=== PATIENT | female | born 1940 | race Caucasian/White ===

== ENCOUNTER 2016-11-19 00:12 | Emergency (ER) | payer MEDICARE ==
--- NOTE | 2016-11-19 00:53 | ED ---
Ayla Ceballos Anna, scribed for Osmany Brown MD on 11/19/16 at 0049 . HPI Chest Pain - HPI Summary HPI Summary: Patient is a 76 y/o female coming to [facility] presenting with left anterior chest pain that began 24 hours ago. Today, she traveled to see family and spent. The pain is now worse, and she describes the severity as 10/10. Her neck and back also hurt. She took two tablets of Tylenol at 2100, but this has not alleviated the pain. She reports that she has not had pain similar to this before. - History of Current Complaint Chief Complaint: EDChestPainROMI Time Seen by Provider: 11/19/16 00:40 Hx Obtained From: Patient Onset/Duration: Started Days Ago, Still Present Timing: Lasting Days Initial Severity: Moderate Current Severity: Moderate Pain Intensity: 10 Pain Scale Used: 0-10 Numeric Chest Pain Location: Left Anterior - Additional Pertinent History Primary Care Physician: [id number] - Allergy/Home Medications Allergies/Adverse Reactions: Allergies Allergy/AdvReac Type Severity Reaction Status Date / Time Latex Allergy Severe Shortness Verified 11/19/16 00:29 of Breath Iodinated Contrast Media Allergy Intermediate Hives Verified 11/19/16 00:29 [CONTRAST DYE] Penicillins [PCN] Allergy Intermediate Hives/Diff. Verified 11/19/16 00:29 Breathing/I tching Sulfa Drugs Allergy Intermediate GI Upset Verified 11/19/16 00:29 Triamcinolone [From Nasacort] Allergy Unknown Unknown Verified 11/19/16 00:29 Reaction Details Nitrofurantoin AdvReac Intermediate GI Upset Verified 11/19/16 00:29 SURGICAL TAPE Allergy Mild Rash Uncoded 11/19/16 00:29 PMH/Surg Hx/FS Hx/Imm Hx Endocrine/Hematology History: Reports: Hx Anticoagulant Therapy - daily coumadin Denies: Hx Diabetes, Hx Thyroid Disease Cardiovascular History: Reports: Hx Angina, Hx Cardiomegaly, Hx Hypercholesterolemia - HLD, Hx Hypertension, Hx Pacemaker/ICD, Hx Peripheral Vascular Disease, Hx Rheumatic Fever - YOUNG CHILD, 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, Other Cardiovascular Problems/Disorders Denies: Hx Coronary Artery Disease, Hx Myocardial Infarction Respiratory History: Reports: Hx Asthma - on meds, Hx Seasonal Allergies, Other Respiratory Problems/Disorders - REACTIVE AIRWAY Denies: Hx Chronic Obstructive Pulmonary Disease (COPD) GI History: Reports: Hx Gastroesophageal Reflux Disease, Hx Ulcer - HEALED WITH ORAL MEDS, NO PROBLEMS SINCE History: Reports: Hx Kidney Stones - , NONE SINCE, PASSED ON OWN Musculoskeletal History: Reports: Hx Arthritis - KNEES, HANDS,, Hx Bursitis, Hx Tendonitis - Hx OF, ELBOWS Sensory History: Reports: Hx Cataracts - NO SURGERY, Hx Contacts or Glasses, Hx Hearing Problem Opthamlomology History: Reports: Hx Cataracts - NO SURGERY, Hx Contacts or Glasses Neurological History: Reports: Hx Headaches Comment Only: Other Neuro Impairments/Disorders - SUDDENLY 2012 Psychiatric History: Reports: Hx Anxiety, Hx Depression - ON DAILY MEDS - Cancer History Cancer Type, Location and Year: Breast cancer - Surgical History Surgery Procedure, Year, and Place: choley 2009. 2011 [facility]. 2002 CARDIAC MITRAL & AORTIC valve replacement [facility]. shoulder surgery 1997. tubal 1975. L breast surgery with lymph node removal L. lumpectomy. 1974 L-4- 5. diskectomy 1974. appy 1961. bilat hands trigger fingers Hx Anesthesia Reactions: No Infectious Disease History: No Infectious Disease History: Denies: Hx Clostridium Difficile, Hx Hepatitis, Hx Human Immunodeficiency Virus (HIV), Hx of Known/Suspected MRSA, Hx Shingles, Hx Tuberculosis, Hx Known/ Suspected VRE, Hx Known/Suspected VRSA, History Other Infectious Disease, Traveled Outside the in Last 30 Days - Family History Known Family History: Positive: Cardiac Disease, Hypertension - Social History Alcohol Use: None Substance Use Type: Reports: None Smoking Status (MU): Never Smoked Tobacco Review of Systems Positive: Chest Pain Positive: Arthralgia, Myalgia All Other Systems Reviewed And Are Negative: Yes Physical Exam Triage Information Reviewed: Yes Vital Signs On Initial Exam: Initial Vitals Temp Pulse Resp BP Pulse Ox 98.5 F 75 18 169/81 97 11/19/16 00:14 11/19/16 00:14 11/19/16 00:14 11/19/16 00:14 11/19/16 00:14 Vital Signs Reviewed: Yes Appearance: Positive: Well-Appearing, No Pain Distress Skin: Positive: Warm Head/Face: Positive: Normal Head/Face Inspection Eyes: Positive: IZABELLA ENT: Positive: Hearing grossly normal Neck: Positive: Supple Respiratory/Lung Sounds: Positive: Clear to Auscultation, Breath Sounds Present Cardiovascular: Positive: RRR Abdomen Description: Positive: Nontender, Soft Bowel Sounds: Positive: Present Musculoskeletal: Positive: Strength/ROM Intact Neurological: Positive: Alert, Oriented to Person Place, Time Psychiatric: Positive: Affect/Mood Appropriate - Harrah Coma Scale Coma Scale Total: 15 Diagnostics - Vital Signs Vital Signs Temp Pulse Resp BP Pulse Ox 11/19/16 00:32 72 11/19/16 00:14 98.5 F 75 18 169/81 97 - Laboratory Result Diagrams: 11/19/16 00:25 11/19/16 00:25 Lab Statement: Any lab studies that have been ordered have been reviewed, and results considered in the medical decision making process. - Radiology CXR Xray Interpretation: No Acute Changes Radiology Interpretation Completed By: ED Physician - EKG 0023 Cardiac Rate: NL - 85 bpm EKG Rhythm: Atrial Fibrillation - with rapid ventricular response ST Segment: Normal Re-Evaluation - Re-Evaluation First Eval Re-Evaluation Time: 05:43 Comment: Discussed results and plan of care with patient. Patient is agreeable with plan. Chest Pain Course/Dx - Course Assessment/Plan: Patient is a 76 y/o female coming to [facility] presenting with left anterior chest pain that began 24 hours ago. Today, she traveled to see family and spent. The pain is now worse, and she describes the severity as 10/ 10. Her neck and back also hurt. She took two tablets of Tylenol at 2100, but this has not alleviated the pain. She reports that she has not had pain similar to this before. Labs reveal WBC 12.5, RBC 3.55, Hgb 10.5, Hct 33, INR 2.34, BUN 39, Creatinine 1.49, BUN/Creatinine ratio 26.2, glucose 136, magnesium 1.8, alkaline phosphatase 116. Initial troponin is 0.01. D-Dimer < 200. CXR is unremarkable. Repeat troponin is 0.02. Patient will be signed out pending third troponin at 0645. If this is negative, patient can be discharged with follow up from primary care physician. Patient is agreeable with plan. - Diagnoses Provider Diagnoses: Chest pain Discharge - Discharge Plan Condition: Stable Disposition: OTHER Discharge Disposition Comment: Signed out, pending third troponin at 0645. If negative, d/c home. Patient Education Materials: Chest Pain (ED) Additional Instructions: Follow up with your primary care provider within 48 hours. Return to the Emergency Department for new or worsening symptoms. The documentation as recorded by the Ayla schwartz Anna accurately reflects the service I personally performed and the decisions made by me, Osmany Brown MD.
[2016-11-19] MEDS ORDERED: Aspirin Low Dose CHEW TAB* 81 MG PO ONE (01:08)
[2016-11-19 01:25] LABS: Hematocrit 33 % (35-47); Hemoglobin 10.5 g/dl (12.0-16.0); Mean Corpuscular HGB Conc 32 g/dl (31-36); Mean Corpuscular Hemoglobin 30 pg (27-31); Mean Corpuscular Volume 92 fL (80-97); Mean Platelet Volume 9 um3 (7.4-10.4); Red Blood Count 3.55 10^6/ul (4.0-5.4); Red Cell Distribution Width 14 % (10.5-15); White Blood Count 12.5 10^3/ul (3.5-10.8)
[2016-11-19 01:36] LABS: Albumin 3.8 g/dL (3.2-5.2); BUN/Creatinine Ratio 26.2 (8-20); Calcium 8.9 mg/dL (8.6-10.3); EGFR African American 43.9 (>60); EGFR Non-African American 34.1 (>60); Globulin 2.8 g/dL (2-4); Magnesium 1.8 mg/dL (1.9-2.7); Potassium 4.2 mmol/L (3.5-5.0); Total Bilirubin 0.3 mg/dL (0.2-1.0); Total Protein 6.6 g/dL (6.4-8.9)
[2016-11-19 01:38] LABS: Troponin I 0.01 ng/mL (<0.04)
--- NOTE | 2016-11-19 05:58 | RAD ---
INDICATION: Chest pain COMPARISON: July 27, 2015 TECHNIQUE: PA and lateral dual-energy views were obtained. FINDINGS: Bones/Soft Tissues: There are no acute bony findings. There is sternotomy with mitral and aortic valvular replacement. There is a dual-chamber right-sided cardiac pacemaker appearing unchanged Cardiomediastinal: The heart is normal in size. Lungs: There are no infiltrates. Pleura: There are no pleural effusions. Other: None IMPRESSION: POSTOPERATIVE CHANGES. NO ACTIVE DISEASE
[2016-11-19] MEDS ORDERED: Ketorolac INJ* 30 MG/ML 1 ML VIAL IV PUSH ONE (08:04)
[2016-11-19] MEDS ORDERED: oxyCODONE/Acetamin 5/325 MG* TAB PO ONE (08:16)
[2016-11-19 09:44] VITALS: BP 171/78
--- NOTE | 2016-11-19 10:14 | ED ---
I, Oh,Soohsathyaun, scribed for Henrry Pierce MD on 11/19/16 at 0812 . Progress - Progress Note Progress Note: Pt has been signed out at shift change from Dr. Brown. Upon re-evaluation Pt denies any SOB, n/v, palpitation, or diaphoresis. Pt does reports LUE shoulder pain that is worse with movement. Upon examination pt is not ttp to chest, CTA, and negative of BLE edema. Percocet was given for pain. With Dr. Brown's advise, pt is discharged with outpatient f/u with her primary care doctor. Pt is agreeable to plan of care. Re-Evaluation - Re-Evaluation First Eval Re-Evaluation Time: 08:02 Change: Improved Comment: MD in room to update pt on negative third trop result and discuss plan of care involving discharge. At this moment Pt denies any SOB, n/v, palpitation , or diaphoresis. Pt does reports LUE shoulder pain that is worse with movement. Upon examination pt is CTA, and negative of BLE edema. Toradol was given for pain. With Dr. Brown's advise, pt is discharged with outpatient f/u with her primary care doctor. Pt is agreeable to plan of care. Course/Dx - Course Course Of Treatment: VITAL SIGNS: Reviewed. GENERAL: Patient is a well developed and nourished female who is lying comfortable in the stretcher. Patient is not in any acute respiratory distress. HEAD AND FACE: No signs of trauma. No ecchymosis, hematomas or skull depressions. No sinus tenderness. EYES: PERRLA, EOMI x 2, No injected conjunctiva, no nystagmus. EARS: Hearing grossly intact. Ear canals and tympanic membranes are within normal limits. MOUTH: Oropharynx within normal limits. NECK: Supple, trachea is midline, no adenopathy, no JVD, no carotid bruit, no c-spine tenderness, neck with full ROM. CHEST: Symmetric, no tenderness at palpation. LUNGS: Clear to auscultation bilaterally. No wheezing or crackles. CVS: Regular rate and rhythm , S1 and S2 present, no murmurs or gallops appreciated. ABDOMEN: Soft, non- tender. No signs of distention. No rebound no guarding, and no masses palpated. Bowel sounds are normal. EXTREMITIES: FROM in all major joints, no edema, no cyanosis or clubbing. NEURO: Alert and oriented x 3. No acute neurological deficits. Speech is normal and follows commands. SKIN: Dry and warm. Patient continues to be asymptomatic therefore she will be discharged home. I discussed all the findings and test results with the patient. Patient was instructed to return to the emergency room immediately if any of the symptoms return or worsens. Plan of care was discussed with the patient and understands and agrees. All questions were answered at patient satisfaction. There were no further complaints or concerns. Lung exam before discharge: CTA B/L. Good air exchange. No wheezing or crackles heard. CVS: S1 and S2 present. No murmurs appreciated. Patient is alert and oriented x 3. Patient is hemodynamically stable. Patient will be discharged home with follow up PCP in the next 2-3 days - Diagnoses Provider Diagnoses: Chest pain The documentation as recorded by the Shadi schwartz Soohyun accurately reflects the service I personally performed and the decisions made by me, Henrry Pierce MD.
== END 2016-11-19 09:43 | disposition home or self-care (01) ==
LOC: ED 00:12
DX: R07.9 Chest pain, unspecified (principal)
CPT/HCPCS: 36415; 71020; 80053; 83605; 83735; 84484; 85025; 85379; 85610; 93005; 96374; 99284; A9270-GY; J1885

== ENCOUNTER 2016-12-04 09:15 | Emergency (ER) | payer MEDICARE ==
--- NOTE | 2016-12-04 10:13 | RAD ---
HISTORY: Fall, back pain COMPARISONS: None TECHNIQUE: Multiple contiguous axial CT scans were obtained of the lumbar spine without intravenous contrast, with coronal and sagittal multiplanar reformations. FINDINGS: SPINAL CANAL: Evaluation of the central canal is limited on CT technique; however, there is no obvious canalicular mass or epidural hemorrhage. ALIGNMENT: There is trace anterolisthesis of L3 on L4 VERTEBRAL BODIES: There is diffuse osteopenia. The vertebral bodies are preserved in height. There is no displaced fracture. JOINTS: There is diffuse facet osteoarthritic change MUSCULATURE: Unremarkable INTERVERTEBRAL DISCS: There is diffuse loss of intervertebral disc height throughout the spine. AXIAL IMAGES: T12-L1: There is no osseous neural foraminal narrowing or central canal stenosis. L1-L2: There is no osseous neural foraminal narrowing or central canal stenosis. L2-L3: There is a mild disc bulge. There is no osseous neural foraminal narrowing or central canal stenosis. L3-L4: There is broad-based disc bulge. There is mild narrowing of central canal. There is mild bilateral neural foraminal narrowing. L4-L5: There is marginal osteophyte formation at the neural foramina bilaterally. There is moderate bilateral neural foraminal narrowing. There is no osseous central canal stenosis. L5-S1: There is mild disc bulge. There is marginal osteophyte formation at the neural foramina bilaterally. There is moderate bilateral neural foraminal narrowing. There is mild narrowing of the central canal. SOFT TISSUES: There is diverticulosis of the colon. There is atherosclerosis of the abdominal aorta. OTHER: None IMPRESSION: 1. OSTEOPENIA. 2. DEGENERATIVE DISC DISEASE AND OSTEOARTHRITIS, DESCRIBED ABOVE. 3. NO ACUTE OSSEOUS INJURY TO THE LUMBAR SPINE
[2016-12-04] MEDS ORDERED: predniSONE TAB* 10 MG PO ONE (10:29)
--- NOTE | 2016-12-04 11:14 | ED ---
Back Pain - HPI Summary HPI Summary: 76F presents with lower back pain for a day. She fell two days ago onto her left side because she slid on her mattress and fell of her bed. She states pain goes to above left knee. She denies any numbness or tingling. She has multiple allergies and take only take tyenlol for pain. She states she does not like how narcotic make her feel. She was able to ambulate with pain. She denies any loss of bowel or bladder. - History of Current Complaint Chief Complaint: EDBackInjuryPain Stated Complaint: BACK PAIN Time Seen by Provider: 12/04/16 09:33 Pain Intensity: 10 - Allergies/Home Medications Allergies/Adverse Reactions: Allergies Allergy/AdvReac Type Severity Reaction Status Date / Time Latex Allergy Severe Shortness Verified 11/19/16 00:29 of Breath Iodinated Contrast Media Allergy Intermediate Hives Verified 11/19/16 00:29 [CONTRAST DYE] Penicillins [PCN] Allergy Intermediate Hives/Diff. Verified 11/19/16 00:29 Breathing/I tching Sulfa Drugs Allergy Intermediate GI Upset Verified 11/19/16 00:29 Triamcinolone [From Nasacort] Allergy Unknown Unknown Verified 11/19/16 00:29 Reaction Details Nitrofurantoin AdvReac Intermediate GI Upset Verified 11/19/16 00:29 SURGICAL TAPE Allergy Mild Rash Uncoded 11/19/16 00:29 PMH/Surg Hx/FS Hx/Imm Hx Endocrine/Hematology History: Reports: Hx Anticoagulant Therapy - daily coumadin Denies: Hx Diabetes, Hx Thyroid Disease Cardiovascular History: Reports: Hx Angina, Hx Cardiomegaly, Hx Hypercholesterolemia - HLD, Hx Hypertension, Hx Pacemaker/ICD, Hx Peripheral Vascular Disease, Hx Rheumatic Fever - YOUNG CHILD, 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, Other Cardiovascular Problems/Disorders Denies: Hx Coronary Artery Disease, Hx Myocardial Infarction Respiratory History: Reports: Hx Asthma - on meds, Hx Seasonal Allergies, Other Respiratory Problems/Disorders - REACTIVE AIRWAY Denies: Hx Chronic Obstructive Pulmonary Disease (COPD) GI History: Reports: Hx Gastroesophageal Reflux Disease, Hx Ulcer - HEALED WITH ORAL MEDS, NO PROBLEMS SINCE History: Reports: Hx Kidney Stones - , NONE SINCE, PASSED ON OWN Musculoskeletal History: Reports: Hx Arthritis - KNEES, HANDS,, Hx Bursitis, Hx Tendonitis - Hx OF, ELBOWS Sensory History: Reports: Hx Cataracts - NO SURGERY, Hx Contacts or Glasses, Hx Hearing Problem Opthamlomology History: Reports: Hx Cataracts - NO SURGERY, Hx Contacts or Glasses Neurological History: Reports: Hx Headaches Comment Only: Other Neuro Impairments/Disorders - SUDDENLY 2012 Psychiatric History: Reports: Hx Anxiety, Hx Depression - ON DAILY MEDS - Cancer History Cancer Type, Location and Year: Breast cancer - Surgical History Surgery Procedure, Year, and Place: choley 2009. 2012 [facility]. 2002 CARDIAC MITRAL & AORTIC valve replacement [facility]. shoulder surgery 1997. tubal 1975. L breast surgery with lymph node removal L. lumpectomy. 1974 L-4- . diskectomy 1974. appy 1961. bilat hands trigger fingers Hx Anesthesia Reactions: No Infectious Disease History: No Infectious Disease History: Denies: Hx Clostridium Difficile, Hx Hepatitis, Hx Human Immunodeficiency Virus (HIV), Hx of Known/Suspected MRSA, Hx Shingles, Hx Tuberculosis, Hx Known/ Suspected VRE, Hx Known/Suspected VRSA, History Other Infectious Disease, Traveled Outside the in Last 30 Days - Family History Known Family History: Positive: Cardiac Disease, Hypertension - Social History Alcohol Use: None Substance Use Type: Reports: None Smoking Status (MU): Never Smoked Tobacco Review of Systems Negative: Fever Negative: Chest Pain Negative: Shortness Of Breath Positive: Myalgia - back pain All Other Systems Reviewed And Are Negative: Yes Physical Exam Triage Information Reviewed: Yes Vital Signs On Initial Exam: Initial Vitals Temp Pulse Resp BP Pulse Ox 97.7 F 70 15 147/75 98 12/04/16 09:20 12/04/16 09:20 12/04/16 09:20 12/04/16 09:20 12/04/16 09:20 Vital Signs Reviewed: Yes Appearance: Positive: Well-Appearing Skin: Positive: Warm, Dry Head/Face: Positive: Normal Head/Face Inspection Eyes: Positive: Normal, Conjunctiva Clear Respiratory/Lung Sounds: Positive: Clear to Auscultation, Breath Sounds Present Cardiovascular: Positive: Normal, RRR Musculoskeletal: Positive: Limited @ - back due to pain, Other - no mdilein tenderness, pain to left side of back, neg SLR, good pulses Diagnostics - Vital Signs Vital Signs Temp Pulse Resp BP Pulse Ox 12/04/16 09:23 72 95 12/04/16 09:22 147/75 12/04/16 09:20 97.7 F 69 15 147/75 98 - Laboratory Lab Statement: Any lab studies that have been ordered have been reviewed, and results considered in the medical decision making process. - CT back CT Interpretation: Positive (See Comments) - IMPRESSION: 1. OSTEOPENIA. 2. DEGENERATIVE DISC DISEASE AND OSTEOARTHRITIS, DESCRIBED ABOVE. 3. NO ACUTE OSSEOUS INJURY TO THE LUMBAR SPINE CT Interpretation Completed By: Radiologist Back Pain Course/Dx - Course Course Of Treatment: 76F presents with back pain since last night. She fell two days ago on her left side. She has been taking tyenlol for her pain. She has been able to ambulate today with pain. CT shows no fracture. discussed options with patient and family due to patient already having tendency to be confused do not want to add medication that could make more confused. discussed potentially lidocaine patches but patient has adverse reaction to tape. discussed adding prednisone and patient states has probably had medication in past. patient tolerated dose in ED. patient understands and agrees with plan - Diagnoses Differential Diagnosis/HQI/PQRI: Positive: Fracture, Herniated Disc, Strain, Sprain Provider Diagnoses: Back pain Discharge - Discharge Plan Condition: Good Disposition: HOME Prescriptions: Methylprednisolone [Medrol Dosepak 4 MG*] 4 mg PO .SEE RHONA INSTRUCTION #1 packet Patient Education Materials: Back Pain (ED) Referrals: Casper Pace MD [Primary Care Provider] - Additional Instructions: Follow directions on package for Medrol pack Use Tylenol for pain every 6 hours ice/heat area, move as much as possible Follow up with primary within 5 days Return to ED if unable to ambulate or develop any new or worsening symptoms
[2016-12-04 12:28] VITALS: BP 141/61
== END 2016-12-04 12:27 | disposition home or self-care (01) ==
LOC: ED 09:15
DX: M54.5 Low back pain (principal); J45.909 Unspecified asthma, uncomplicated; Z79.01 Long term (current) use of anticoagulants; F41.9 Anxiety disorder, unspecified; F32.9 Major depressive disorder, single episode, unspecified; W06.XXXA Fall from bed, initial encounter; Y92.9 Unspecified place or not applicable; Z88.0 Allergy status to penicillin; Z88.2 Allergy status to sulfonamides
CPT/HCPCS: 36415; 72131; 85610; 99282; J7512

== ENCOUNTER 2017-05-26 08:13 | Emergency (ER) | payer MEDICARE ==
[2017-05-26 08:26] VITALS: BP 134/64
--- NOTE | 2017-05-26 09:06 | UC ---
Gennaro Ceballos Angela, scribed for Ximena Santillan MD on 05/26/17 at 0847 . Lower Extremity/Ankle HPI - HPI Summary HPI Summary: This pt is a 77 y/o female presenting to [facility] c/o left great toe nail is coming off. Pt reports she has had some bleeding and it is painful. Pt notes she trips a lot but has not noticed any recent trauma to her toe. She states she is afraid to take her toe nail off as she is currently on Coumadin. Pt's PCP is Dr. Pace. 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 Pt reports she was diagnosed with temporal arteritis 4 days ago. Pt is currently on Coumadin. PMHx: HTN, diabetes. She states her diabetes is being controlled with diet. - History of Current Complaint Chief Complaint: UCLowerExtremity Stated Complaint: FOOT COMPLAINT Time Seen by Provider: 05/26/17 08:41 Hx Obtained From: Patient Onset/Duration: Lasting Days Severity Initially: Moderate Severity Currently: Severe Pain Intensity: 9 Pain Scale Used: 0-10 Numeric Aggravating Factor(s): Nothing Alleviating Factor(s): Nothing Able to Bear Weight: Yes - Risk Factors Gout Risk Factors: Diabetes, Hypertension - Allergies/Home Medications Allergies/Adverse Reactions: Allergies Allergy/AdvReac Type Severity Reaction Status Date / Time Latex Allergy Severe Shortness Verified 05/26/17 08:22 of Breath Iodinated Contrast Media Allergy Intermediate Hives Verified 05/26/17 08:22 [CONTRAST DYE] Penicillins [PCN] Allergy Intermediate Hives/Diff. Verified 05/26/17 08:22 Breathing/I tching Sulfa Drugs Allergy Intermediate GI Upset Verified 05/26/17 08:22 Triamcinolone [From Nasacort] Allergy Unknown Unknown Verified 05/26/17 08:22 Reaction Details Nitrofurantoin AdvReac Intermediate GI Upset Verified 05/26/17 08:22 SURGICAL TAPE Allergy Mild Rash Uncoded 05/26/17 08:22 Home Medications: Home Medications Diltiazem HCl Extended Release [Diltiazem HCl ER] 300 mg PO DAILY 05/26/17 [ History Confirmed 05/26/17] predniSONE TAB* [Deltasone TAB*] 20 mg PO DAILY 05/26/17 [History Confirmed ] PMH/Surg Hx/FS Hx/Imm Hx - Additional Past Medical History Additional PMH: PMHx: temporal arteritis diagnosed 05/29 Endocrine History: Diabetes - recently diagnosed approx 2 weeks ago Cardiovascular History: Hypertension, Other Other Cardiovascular History: Valvular heart disease - mechanical valves AVR MVR. Respiratory History: Asthma GI/ History: Ulcer - , healed with oral meds, no problems since Cancer History: Breast Cancer Other History Of: Anticoagulant Therapy - daily coumadin - Surgical History Surgical History: Yes Surgery Procedure, Year, and Place: choley 2009. 2012 [facility]. 2002 [facility] valve replacement [facility]. shoulder surgery 1997. tubal 1975. L breast surgery with lymph node removal L. lumpectomy. 1974 L-4- 5. diskectomy 1974. appy 1961. bilat hands trigger fingers - Family History Known Family History: Positive: Cardiac Disease, Hypertension, Diabetes - nephew - fatal dm at 65 y/o - Social History Occupation: Retired Lives: With Family Alcohol Use: None Substance Use Type: None Smoking Status (MU): Never Smoked Tobacco - Immunization History Most Recent Influenza Vaccination: fall 2015 Most Recent Tetanus Shot: Unknown Most Recent Pneumonia Vaccination: fall 2015 Review of Systems Constitutional: Negative Skin: Negative Eyes: Negative ENT: Negative Respiratory: Negative Cardiovascular: Negative - history of valve replacement with inr target of 2.5 to 3.5, last inr was 2.9 Gastrointestinal: Negative Genitourinary: Negative Motor: Negative Neurovascular: Negative Musculoskeletal: Other: - LLE: left great toe coming off, bleeding, and pain Neurological: Headache - started on prednisone this week for tx of TA. Tolerating it well. Psychological: Negative All Other Systems Reviewed And Are Negative: Yes Physical Exam Triage Information Reviewed: Yes Appearance: Well-Appearing, No Pain Distress Vital Signs: Initial Vital Signs Temp 98 F 05/26/17 08:23 Pulse 88 05/26/17 08:23 Resp 18 05/26/17 08:23 BP 134/64 05/26/17 08:23 Pulse Ox 99 05/26/17 08:23 ENT: Positive: Normal ENT inspection Respiratory: Positive: Lungs clear, Normal breath sounds Cardiovascular: Positive: RRR, No Murmur - click of mechanical valve. Musculoskeletal Exam: Normal Neurological: Positive: Alert, Muscle Tone Normal Psychological Exam: Normal Skin Exam: Other - left great toe with nail barely adherent to the distal medial nail border. Lifted easily with a hemostat and removed. There is about 5 mm growth of nail, with about 6 mm of eschar over the nail bed. This was not disrupted. Lower Extremity Course/Dx - Course Course Of Treatment: Pt is a 77 y/o female presenting to [facility] c/o left great toe nail is coming off. Pt medications reviewed this visit. - Differential Dx/Diagnosis Provider Diagnoses: nail trauma, subungual hematoma. history of anticoagulation. Discharge - Discharge Plan Condition: Stable Disposition: HOME Patient Education Materials: Nail Removal (ED) Referrals: Casper Pace MD [Primary Care Provider] - Additional Instructions: It is not likely that you will have bleeding from the toenail, but should that occur, apply steady firm pressure and keep the foot elevated. I advise soaking your toe in warm water and epsom salts twice daily for 10 minutes. The dark blood collection will soak away over several days, and a new nail is forming. Apply a layer of antibiotic and a non-stick dressing. The documentation as recorded by the Gennaro schwartz Angela accurately reflects the service I personally performed and the decisions made by me, Ximena Santillan MD.
== END 2017-05-26 09:15 | disposition home or self-care (01) ==
LOC: UCEAST 08:13
DX: X58.XXXA Exposure to other specified factors, initial encounter (principal); Y93.9 Activity, unspecified; Y92.9 Unspecified place or not applicable; Y99.9 Unspecified external cause status; I10 Essential (primary) hypertension; E11.9 Type 2 diabetes mellitus without complications; Z88.6 Allergy status to analgesic agent; Z88.1 Allergy status to other antibiotic agents; Z88.8 Allergy status to other drugs, medicaments and biological substances
CPT/HCPCS: 99212; G0463

== ENCOUNTER 2017-09-03 13:17 | Emergency (ER) | payer MEDICARE ==
--- OUTSIDE RECORDS SUMMARY | 2017-09-03 13:29 | XMS REPORT ---
:1940 External Reference #:[id number] Author Organization [employer] Address [address] [address] Phone [phone] Care Team Providers Name Role Phone Casper Pace MD Primary Care Physician Unavailable Payers Type Date Identification Numbers Payment Provider Subscriber Medicare Primary Effective: Policy Number: Medicare Wojciech Bowens 2003 [id number] PayID: [id number] [address] [place] [address] [facility] Policy Number: [id number] [facility] Wojciech Bowens PayID: [id number] [address] [place] [address] Problems Date Description Provider Status Onset: 05/22/2003 Rheumatic aortic regurgitation Active Onset: 05/09/2012 Benign essential hypertension Ab Chakraborty M.D. Active Onset: 05/09/2012 Sinus node dysfunction Ab Chakraborty M.D. Active Onset: 12/02/2013 Cardiac pacemaker in situ Ab Chakraborty M.D. Active Onset: 12/02/2013 Mitral valve disorder Ab Chakraborty M.D. Active Onset: 12/02/2013 Aortic valve disorder Ab Chakraborty M.D. 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 Allergies, Adverse Reactions, Alerts Date Description Reaction Status Severity Comments 12/25/2002 Penicillin active 12/25/2002 Sulfa active 12/25/2002 IVP Contrast active hives 02/21/2005 nasacort active 05/15/2007 Latex active 04/21/2015 Macrobid GI sick to stomach active per patient 04/21/2015 Macrodantin GI sick to stomach active per patient 04/26/2015 Tape active Medications Medication Date Status Form Strength Qnty SIG Indications Ordering Provider Metoprolol 07/30/ Active Tablets ER 25mg 90tab 1 by mouth Ab Succinate ER 2016 24HR s every day Edin Chakraborty M.D. Aldactone 07/13/ Active Tablets 25mg 90tab 1 by mouth Ab 2016 s every day Edin Chakraborty M.D. Crestor 03/29/ Active Tablets 5mg 30tab 1 by mouth Ab 2016 s every night Edin Chakraborty, at bedtime Bhavna Blood Pressure 12/28/ Active Kit 1 cuff Ab Monitor 2016 Edin Chakraborty Automatic With Bhavna Large Cuff Torsemide 12/13/ Active Tablets 10mg 30tab 1 tab po Ab 2016 s every Edin Chakraborty, Sunday and Bhavna Sunday Diltiazem CD 07/12/ Active Caps ER 300mg 30cap 1 tablet I48.0 Ab 2016 24HR s daily Edin Chakraborty M.D. Pantoprazole 05/09/ Active Tablets DR 40mg 90tab 1 po once Ab Sodium 2011 s daily Edin Chakraborty M.D. Effexor XR 03/20/ Active Tablets 150mg 1 po bid Ab 2006 Edin Chakraborty M.D. Claritin 11/08/ Active Tablets 10mg 1 po qd Ab 2005 Edin Chakraborty M.D. Tylenol 03/22/ Active Tablets 500mg 2 po prn Ab 2002 Edin Chakraborty M.D. Coumadin 00/ Active Tablets 2.5mg 2.5 mg on Unknown 0000 Sun/Sunday and 5 mg all other mon, wed, thur, sat, sun as directed ( adjustment [facility] [place]) Clindamycin / Active Capsules 150mg 4 caps 1 Unknown HCL 0000 hour prior to dental work Singulair / Active Chewtabs 10mg 1 tab at Unknown 0000 night Calcium 600 + / Active Tablets 600-400mg 1 po qd Unknown D 0000 Femara / Active Tablets 2.5mg 1 po qd at Unknown 0000 bedtime Rayne / Active 1000mg 1 po qd Unknown 0000 Acidophilus / Active Capsules 300mg 1 by mouth Unknown 0000 every day Losartan 07/17/ Hx Tablets 25mg 90tab 1 by mouth Ab Potassium 2016 - s every day Edin Chakraborty, M.D. 2017 Prednisone 05/23/ Hx Tablets 20mg take 1 [place], 2017 - tablet by Casper 06/18/ mouth once MD 2016 daily ( took for 21 days finished ) Losartan 11/03/ Hx Tablets 50mg 30tab 1/2 tab by Ab Potassium 2016 s mouth every FJohana Chakraborty, 07/17/ morning M.D. 2017 Toprol XL 09/10/ Hx Tablets ER 25mg 180ta 1 by mouth Ab 2014 - 24HR bs every day FJohana Chakraborty, M.D. 2017 Klor-Con M20 01/26/ Hx Tablets ER 20Meq 90tab 1 by mouth Ab 2013 - s every day Edin Chakraborty, M.D. 2017 Atorvastatin 01/23/ Hx Tablets 20mg 90tab Ab Calcium 2013 - s FJohana Chakraborty, M.D. 2016 [place] 05/21/ Hx Tablets 5-325mg 40tab 1-2 po q4h Radah 2012 - s prn pain Navarro, M.D. 2014 Losartan 09/02/ Hx Tablets 25mg 180ta 1 by mouth Ab Potassium 2012 - bs twice a day Edin Chakraborty, M.D. 2017 Potassium 06/04/ Hx Tablets ER 20Meq 90tab 1 by mouth Ab Chloride ER 2011 - s every day F. Mauser, M.D. 2013 Cardizem CD 05/23/ Hx Caps ER 240mg 90cap 1 by mouth I48.0 Ab 2011 - 24HR s every day Edin Chakraborty, M.D. 2016 Macrobid 05/22/ Hx Capsules 100mg 14cap 1 tab bid x Unknown 2011 - s 7 days 2012 Cardizem CD 05/09/ Hx Caps ER 120mg 60cap 2 po qd Ab 2011 - 24HR s Edin Chakraborty, M.D. 2011 Diovan 05/10/ Hx Tablets 40mg 180ta 2 tabs by Ab 2009 - bs mouth once Edin Chakraborty, 09/02/ daily M.D. 2012 Diovan 04/14/ Hx Tablets 80mg 30tab 1 po qd Ab 2009 - s Edin Chakraborty, M.D. 2009 Cardizem CD 03/16/ Hx Caps ER 120mg 30cap 1 po qd Ab 2009 - 24HR s Edin Chakraborty, M.D. 2012 Potassium 02/16/ Hx Tablets ER 10Meq 90tab 1 tablet po Ab Chloride 2009 - s qd F. Joellenuser, M.D. 2011 Zocor 09/24/ Hx Tablets 10mg 90tab 1 po hs Ab 2009 - s Robert. Palmer, M.D. 2011 Zocor 09/20/ Hx Tablets 20mg 90tab 1 po qhs Ab 2009 - s Edin Cuencauser, M.D. 2009 Zocor 07/05/ Hx Tablets 10mg 30tab 2 po hs Ab 2008 - s F. Joellenusehi, M.D. 2009 K-Tabs 07/05/ Hx Tablets ER 10Meq 90tab 2 tablets Ab 2008 - s po qd x2 Edin Chakraborty, 02/16/ then M.D. 2009 1 tablet po qd Avapro 07/08/ Hx Tablets 150mg 90tab 1 PO PO Ab 2007 - s Robert. Joellenusehi, M.D. 2009 Avapro 07/08/ Hx Tablets 150mg 90tab 1 po qd Ab 2007 - shawn Charkaborty, M.D. 2009 Vagifem 07/01/ Hx Tablets 25mcg 2 times a Ab 2007 - week Edin Chakraborty, M.D. 2008 Cardizem CD 07/01/ Hx Caps ER 240mg 90cap 1 po qd Ab 2007 - 24HR shawn Chakraborty, M.D. 2009 Avapro 07/01/ Hx Tablets 75mg 90tab 1 po qam Ab 2007 - shawn Chakraborty, M.D. 2007 Cardizem CD 06/26/ Hx Caps ER 360mg 30cap 1 PO qd Ab 2007 - 24HR shawn Chakraborty, M.D. 2007 Cardizem CD 06/26/ Hx Caps ER 180mg 60cap 2 tabs qd Ab 2007 - 24HR shawn Chakraborty, .D. 2007 Cardizem CD 06/15/ Hx Caps ER 240mg 60cap 1 po qd Ab 2007 - 24HR shawn Chakraborty, M.D. 2008 Prevacid 05/15/ Hx Capsules 30mg 90cap 1 PO bid Ab 2006 - DR shawn Chakraborty, M.D. 2012 Lotrel 08/02/ Hx Capsules 5mg;20 mg 90cap 1 PO qd Ab 2005 - shawn Chakraborty, M.D. 2008 Cipro 08/02/ Hx Tablets 1 po prn Unknown 2005 - 2008 Effexor XR 08/02/ Hx Capsules 75mg 1 po qd Ab 2005 - Edin Chakraborty, M.D. 2007 Macrobid 08/02/ Hx Capsules 100mg PO bid prn Ab 2006 - ROCIO Chakraborty, M.D. 2009 Norvasc 11/28/ Hx Tablets 5mg 1 po bid Ab 2005 - Edin Chakraborty, M.D. 2006 Norvasc 11/09/ Hx Tablets 5mg 30tab 1 po qd Ab 2006 - shawn Chakraborty, M.D. 2006 Effexor XR 11/08/ Hx Capsules 37.5mg 1 po qd Ab 2005 - Edin Chakraborty, M.D. 2006 Cipro 11/08/ Hx Tablets 750 one half po Unknown 2005 - bid 2005 Coumadin 02/21/ Hx Tablets 5mg 1/2 tablet Ab 2005 - Edin villalobos, 03/26/ sun,alla MAliya 2014 and then 1 tablet heri sexton sat,shawn avery as directed adjusted by [facility] Lisinopril 11/03/ Hx Tablets 10mg 30tab 1 po qd Ab 2004 - shawn Chakraborty, M.D. 2006 Lisinopril 10/26/ Hx Tablets 2.5mg 60tab 2 po qd Ab 2004 - shawn Chakraborty, M.D. 2004 Effexor 10/25/ Hx Tablets 112.5mg 1 po qd Ab 2004 - Edin Chakraborty, M.D. 2005 Aspirin 11/01/ Hx Chewtabs 81mg 1 po qd Unknown 2003 - 2004 Zithromax 11/01/ Hx Tablets 250mg 2tabs 2 Tab Prior Unknown 2003 - [facility] 2008 Vitamin B6 11/01/ Hx Tablets 200mg 1 po qd Unknown 2003 - 2004 Vitamin C 11/01/ Hx Capsules 500mg 1 po qd Unknown 2003 - 2004 Vitamins 10/11/ Hx Caplets 30cap 1 PO qd Ab Multiple 2003 - shawn Chakraborty, M.D. 2009 Altace 06/22/ Hx Capsules 2.5mg 30cap 1 po qd Ab 2002 - shawn Chakraborty, M.D. 2002 Docusate 06/22/ Hx Capsules 100mg 1 po qd Ab Sodium 2002 - Edin Chakraborty, M.D. 2004 Lisinopril 06/22/ Hx Tablets 2.5mg 30tab 1 po qd Ab 2002 - shawn Chakraborty, M.D. 2005 Coumadin 06/10/ Hx Tablets 4mg 100ta use as Ab 2002 - bs directed Edin Chakraborty, M.D. 2004 dr chung following coumadin cheratussin ac 06/09/ Hx 2tsp q 6 hrs Ab 2002 - Edin Chakraborty, M.D. 2002 cefuroxime 06/09/ Hx 500mg one bid Ab 2002 - Edin Chakraborty, M.D. 2002 hydroco/apap 06/09/ Hx 5/325 one to two Ab 2002 - q 4 hrs Edin Chakraborty, M.D. 2002 Aggrenox 05/13/ Hx Capsules 25mg;200 90cap 1 po bid Ab 2002 - mg s Edin Chakraborty, .D. 2002 Aspirin 03/22/ Hx Tablets 81mg qd Count Includes [facility] Enteric Coated 2002 - Edin Chakraborty, M.D. 2002 Tums 03/12/ Hx Chewtabs PT Unsure 2 qd Ab 2002 - Dose Edin Chakraborty, M.D. 2015 Effexor XR 12/25/ Hx Capsules 150mg 30cap one qd Count Includes [facility] 2002 - s Edin Chakraborty, M.D. 2004 Azmacort Mdi 15/ Hx Inhaler 1unit 2puffs bid Count Includes [facility] 2002 - s Edin Chakraborty, M.D. 2004 Zestril 15/ Hx Tablets 10mg 30tab one qd Count Includes [facility] 2002 - s Edin Chakraborty, M.D. 2002 Singulair 15/ Hx Tablets 10mg 30tab One qd At Count Includes [facility] 2002 - s hs Edin Chakraborty, M.D. 2015 Clarinex 12/25/ Hx Tablets 5mg 100ta qpm Ab 2002 - bs Edin Chakraborty, M.D. 2006 Aspirin 12/25/ Hx 80 q d Ab 2002 - Edin Chakraborty, M.D. 2002 Macrodantin / Hx Capsules 100mg 30cap 1 po qd Unknown 0000 - s 2005 Premarin / Hx Cream 0.625mg/GM 4unit Twice Unknown Vaginal 0000 - s Weekly 2006 Macrodantin / Hx Capsules 50mg 1 po qd prn Unknown 0000 - bladder 2011 Premarin / Hx Cream 0.625mg/GM 42.5G prn Unknown 0000 - 2013 Evening / Hx Capsules 500mg 2 po qd Unknown Rayne Oil 0000 - 2015 Tums E-X 750 ( / Hx Chewtabs 750mg 1 chew Unknown [facility] 0000 - tablet po Brand) 03/26/ b.i.d 2014 Zofran / Hx Tablets 4mg 1 tab by Unknown 0000 - mouth every 11/15/ 6 hours as 2017 needed nausea Medications Administered in Office Medication Date Status Form Strength Qnty SIG Indications Ordering Provider Depomedrol Administered Injection Radha 40MG Hebert Navarro M.D. Depomedrol Administered Injection Radha 40MG Hebert Navarro M.D. Inj, Administered Injection Gonzalo Ha Regadenoson, 017 Bhavna Pedraza 0.1 MG Technetium TC Administered Injection Gonzalo Ha 99M Hebert Pedraza M.D. Tetrofosmin, Per Unit Dose Up To 40 Millicuries Depomedrol Administered Injection Radha 40MG Melani Navarro M.D. Depomedrol Administered Injection Radha 40MG Melani Navarro M.D. Depomedrol Administered Injection Radha 40MG 016 Bhavna Navarro Depomedrol Administered Injection Radha 80MG 015 Bhavna Navarro Depomedrol Administered Injection Radha 80MG Josué Navarro M.D. Depomedrol Administered Injection Radha 80MG 014 Bhavna Navarro Depomedrol Administered Injection Radha 80MG 013 Bhavna Navarro Vital Signs Date Vital Result Comment 08/31/2017 Height 61 inches 5'1" Weight 146.00 lb Heart Rate 72 /min BP Systolic Sitting 148 mmHg Ra reg cuff BP Diastolic Sitting 70 mmHg Ra reg cuff BMI (Body Mass Index) 27.6 kg/m2 Ejection Fraction 45-50% Echo 05/24/17 07/13/2017 Height 61 inches 5'1" Weight 159.00 lb w/o shoes Heart Rate 68 /min BP Systolic Sitting 158 mmHg LA reg cuff BP Diastolic Sitting 82 mmHg LA reg cuff BP Systolic Standing 128 mmHg ra repeat BP Diastolic Standing 77 mmHg ra repeat BMI (Body Mass Index) 30.0 kg/m2 Ejection Fraction 45%-50% echo 05/24/17 06/19/2017 Height 61 inches 5'1" Weight 161.00 lb with shoes Heart Rate 70 /min BP Systolic Sitting 112 mmHg Rue lg cuff BP Diastolic Sitting 70 mmHg Rue lg cuff BP Systolic Standing 110 mmHg Rue lg cuff BP Diastolic Standing 70 mmHg Rue lg cuff Respiratory Rate 17 /min BMI (Body Mass Index) 30.4 kg/m2 Ejection Fraction 45-50% date 05/24/17 Echo 04/25/2017 Height 61 inches 5'1" Weight 170.00 lb with shoes Heart Rate 68 /min BP Systolic Sitting 160 mmHg Ra reg cuff BP Diastolic Sitting 84 mmHg Ra reg cuff BMI (Body Mass Index) 32.1 kg/m2 Ejection Fraction 45%-50% echo 03/05/17 03/14/2017 Height 61 inches 5'1" Weight 171.00 lb Heart Rate 76 /min BP Systolic 135 mmHg BP Diastolic 75 mmHg BMI (Body Mass Index) 32.3 kg/m2 02/01/2017 Height 61 inches 5'1" Weight 170.00 lb with shoes Heart Rate 66 /min BP Systolic 137 mmHg Ra home home cuff BP Diastolic 96 mmHg Ra home home cuff BP Systolic Sitting 144 mmHg Ra lrg cuff BP Diastolic Sitting 82 mmHg Ra lrg cuff BMI (Body Mass Index) 32.1 kg/m2 Ejection Fraction 40% - 45% echo 12/07/16 01/01/2017 Height 61 inches 5'1" Weight 171.25 lb w/o shoes Heart Rate 78 /min BP Systolic Sitting 158 mmHg Ra reg cuff BP Diastolic Sitting 74 mmHg Ra reg cuff BMI (Body Mass Index) 32.4 kg/m2 Ejection Fraction 40% - 45% 11/16/2016 Height 61 inches 5'1" Weight 164.00 lb w/shoes Heart Rate 90 /min BP Systolic Sitting 168 mmHg LA reg cuff BP Diastolic Sitting 84 mmHg LA reg cuff BMI (Body Mass Index) 31.0 kg/m2 Ejection Fraction 50% - 55% echo 10/01/14 08/02/2016 Height 61 inches 5'1" Weight 166.25 lb w/o shoes Heart Rate 64 /min BP Systolic Sitting 160 mmHg LA reg cuff BP Diastolic Sitting 84 mmHg LA reg cuff BMI (Body Mass Index) 31.4 kg/m2 Ejection Fraction 50% - 55% echo 10/01/14 07/12/2016 Height 61 inches 5'1" Weight 164.75 lb Heart Rate 86 /min BP Systolic Sitting 166 mmHg LA lrg cuff BP Diastolic Sitting 82 mmHg LA lrg cuff BMI (Body Mass Index) 31.1 kg/m2 Ejection Fraction 50% - 55% echo 10/01/14 06/06/2016 Height 61 inches 5'1" Weight 161.00 lb w/o shoes Heart Rate 62 /min BP Systolic Sitting 168 mmHg Ra reg cuff BP Diastolic Sitting 80 mmHg Ra reg cuff BP Systolic Standing 134 mmHg la repeat sitting BP Diastolic Standing 66 mmHg la repeat sitting BMI (Body Mass Index) 30.4 kg/m2 Ejection Fraction 50%-55% echo 10/01/14 05/17/2016 Height 61 inches 5'1" Weight 175.00 lb Pain Level 5 BMI (Body Mass Index) 33.1 kg/m2 10/28/2015 Height 61 inches 5'1" Weight 175.00 lb BP Systolic Sitting 150 mmHg BP Diastolic Sitting 70 mmHg Respiratory Rate 16 /min Pain Level 10 BMI (Body Mass Index) 33.1 kg/m2 04/26/2015 Height 61 inches 5'1" Weight 175.00 lb Respiratory Rate 18 /min Pain Level 10 BMI (Body Mass Index) 33.1 kg/m2 04/21/2015 Height 61 inches 5'1" Weight 180.00 lb with shoes Heart Rate 62 /min BP Systolic Sitting 144 mmHg LA reg cuff BP Diastolic Sitting 80 mmHg LA reg cuff BP Systolic Standing 144 mmHg repeat left arm sit BP Diastolic Standing 82 mmHg repeat left arm sit Respiratory Rate 16 /min BMI (Body Mass Index) 34.0 kg/m2 Ejection Fraction 50-55% date 10/01/14 ECHO 10/13/2014 Height 61 inches 5'1" Weight 178.75 lb with shoes Heart Rate 70 /min BP Systolic Sitting 164 mmHg LA lg cuff BP Diastolic Sitting 92 mmHg LA lg cuff Respiratory Rate 17 /min BMI (Body Mass Index) 33.8 kg/m2 09/10/2014 Height 61 inches 5'1" Weight 180.75 lb with shoes Heart Rate 80 /min BP Systolic Sitting 156 mmHg LA lg cuff BP Diastolic Sitting 92 mmHg LA lg cuff Respiratory Rate 17 /min BMI (Body Mass Index) 34.1 kg/m2 04/23/2014 Height 61 inches 5'1" Heart Rate 66 /min BP Systolic 140 mmHg BP Diastolic 79 mmHg 12/04/2013 Height 62 inches 5'2" Heart Rate 63 /min BP Systolic 162 mmHg BP Diastolic 83 mmHg 12/02/2013 Height 62 inches 5'2" Weight 177.00 lb Heart Rate 64 /min BP Systolic Sitting 132 mmHg BP Diastolic Sitting 74 mmHg Respiratory Rate 16 /min BMI (Body Mass Index) 32.4 kg/m2 11/13/2013 Height 62 inches 5'2" Weight 174.00 lb Heart Rate 61 /min BP Systolic 170 mmHg BP Diastolic 78 mmHg BMI (Body Mass Index) 31.8 kg/m2 11/06/2012 Height 63 inches 5'3" Weight 176.00 lb Heart Rate 68 /min BP Systolic 132 mmHg BP Diastolic 80 mmHg BMI (Body Mass Index) 31.2 kg/m2 05/23/2012 Height 63 inches 5'3" Weight 169.00 lb Heart Rate 72 /min Regular BP Systolic Sitting 146 mmHg BP Diastolic Sitting 68 mmHg BMI (Body Mass Index) 29.9 kg/m2 05/09/2012 Height 63 inches 5'3" Weight 173.00 lb Heart Rate 60 /min BP Systolic Sitting 160 mmHg BP Diastolic Sitting 88 mmHg Respiratory Rate 20 /min BMI (Body Mass Index) 30.6 kg/m2 04/12/2011 Height 63 inches 5'3" Weight 170.00 lb Heart Rate 84 /min BP Systolic Sitting 160 mmHg L BP Diastolic Sitting 90 mmHg L BMI (Body Mass Index) 30.1 kg/m2 02/16/2010 Height 63 inches 5'3" Weight 172.00 lb Heart Rate 68 /min BP Systolic Sitting 110 mmHg BP Diastolic Sitting 70 mmHg BMI (Body Mass Index) 30.5 kg/m2 07/02/2009 Height 63 inches 5'3" Weight 178.00 lb Heart Rate 62 /min BP Systolic Sitting 142 mmHg BP Diastolic Sitting 84 mmHg BMI (Body Mass Index) 31.5 kg/m2 09/01/2008 Height 63 inches 5'3" Weight 185.00 lb Heart Rate 60 /min BP Systolic Sitting 130 mmHg BP Diastolic Sitting 80 mmHg Respiratory Rate 16 /min BMI (Body Mass Index) 32.8 kg/m2 07/08/2008 Height 63 inches 5'3" Heart Rate 76 /min home unit: 152/81 BP Systolic Sitting 150 mmHg BP Diastolic Sitting 80 mmHg 07/01/2008 Height 63 inches 5'3" Weight 190.00 lb Heart Rate 66 /min BP Systolic Sitting 160 mmHg L BP Diastolic Sitting 90 mmHg L BMI (Body Mass Index) 33.7 kg/m2 11/22/2007 Height 63 inches 5'3" Weight 186.00 lb Heart Rate 61 /min BP Systolic Sitting 180 mmHg L BP Diastolic Sitting 80 mmHg L BMI (Body Mass Index) 32.9 kg/m2 05/29/2007 Height 63 inches 5'3" Heart Rate 76 /min BP Systolic Sitting 140 mmHg L BP Diastolic Sitting 90 mmHg L 05/29/2007 Height 63 inches 5'3" 05/27/2007 Height 63 inches 5'3" BP Systolic Sitting 140 mmHg BP Diastolic Sitting 80 mmHg BP Systolic Standing 150 mmHg BP Diastolic Standing 80 mmHg 05/15/2007 Height 63 inches 5'3" Weight 192.00 lb Heart Rate 75 /min BP Systolic Sitting 120 mmHg BP Diastolic Sitting 80 mmHg BMI (Body Mass Index) 34.0 kg/m2 03/20/2007 Height 63 inches 5'3" Weight 189.00 lb Heart Rate 75 /min BP Systolic Sitting 130 mmHg BP Diastolic Sitting 78 mmHg Respiratory Rate 16 /min BMI (Body Mass Index) 33.5 kg/m2 08/02/2006 Height 63 inches 5'3" Weight 186.00 lb Heart Rate 72 /min BP Systolic Sitting 138 mmHg BP Diastolic Sitting 84 mmHg BP Systolic Standing 130 mmHg BP Diastolic Standing 84 mmHg BMI (Body Mass Index) 32.9 kg/m2 11/09/2005 Height 63 inches 5'3" Weight 182.00 lb Heart Rate 60 /min BP Systolic Sitting 200 mmHg R BP Diastolic Sitting 90 mmHg R BP Systolic Standing 200 mmHg R BP Diastolic Standing 90 mmHg R BMI (Body Mass Index) 32.2 kg/m2 11/03/2004 Height 63 inches 5'3" Weight 166.00 lb Heart Rate 64 /min BP Systolic Sitting 144 mmHg R BP Diastolic Sitting 90 mmHg R BP Systolic Standing 140 mmHg R BP Diastolic Standing 90 mmHg R BMI (Body Mass Index) 29.4 kg/m2 10/26/2004 Height 63 inches 5'3" Weight 161.00 lb Heart Rate 63 /min BP Systolic Sitting 160 mmHg R BP Diastolic Sitting 80 mmHg R BP Systolic Standing 150 mmHg R BP Diastolic Standing 90 mmHg R BMI (Body Mass Index) 28.5 kg/m2 09/08/2004 Height 63 inches 5'3" BP Systolic Sitting 124 mmHg BP Diastolic Sitting 78 mmHg 10/12/2003 Height 63 inches Weight 156.00 lb Heart Rate 77 /min BP Systolic Sitting 134 mmHg BP Diastolic Sitting 88 mmHg BP Systolic Standing 130 mmHg BP Diastolic Standing 88 mmHg BMI (Body Mass Index) 27.6 kg/m2 07/13/2003 Height 63 inches Weight 158.00 lb Heart Rate 88 /min BP Systolic Sitting 154 mmHg BP Diastolic Sitting 90 mmHg BP Systolic Standing 150 mmHg BP Diastolic Standing 90 mmHg BMI (Body Mass Index) 28.0 kg/m2 06/22/2003 Height 63 inches Weight 158.00 lb Heart Rate 98 /min BP Systolic Sitting 130 mmHg BP Diastolic Sitting 84 mmHg BP Systolic Standing 134 mmHg BP Diastolic Standing 82 mmHg BMI (Body Mass Index) 28.0 kg/m2 06/10/2003 Height 63 inches Weight 158.00 lb Heart Rate 64 /min BP Systolic Sitting 130 mmHg BP Diastolic Sitting 78 mmHg BP Systolic Standing 130 mmHg BP Diastolic Standing 90 mmHg BMI (Body Mass Index) 28.0 kg/m2 05/14/2003 Height 63 inches Weight 160.00 lb Heart Rate 64 /min BP Systolic Sitting 160 mmHg BP Diastolic Sitting 84 mmHg BP Systolic Standing 150 mmHg BP Diastolic Standing 90 mmHg BMI (Body Mass Index) 28.3 kg/m2 03/23/2003 Height 63 inches Weight 158.00 lb Heart Rate 72 /min BP Systolic Sitting 140 mmHg BP Diastolic Sitting 90 mmHg BP Systolic Standing 130 mmHg BP Diastolic Standing 70 mmHg BMI (Body Mass Index) 28.0 kg/m2 03/12/2003 Height 63 inches Weight 156.00 lb Heart Rate 72 /min BP Systolic Sitting 150 mmHg BP Diastolic Sitting 80 mmHg BP Systolic Standing 150 mmHg BP Diastolic Standing 90 mmHg BMI (Body Mass Index) 27.6 kg/m2 Results Test Date Test Result H/L Range Note Basic Metabolic Panel 07/26/2017 Sodium 141 mmol/L 133-145 Potassium 4.6 mmol/L 3.5-5.0 Chloride 104 mmol/L 101-111 Co2 Carbon Dioxide 24 mmol/L 22-32 Anion Gap 13 mmol/L High 2-11 Glucose 148 mg/dL High 70-100 Blood Urea Nitrogen 43 mg/dL High 6-24 Creatinine 2.12 mg/dL High 0.51-0.95 BUN/Creatinine Ratio 20.3 High 8-20 Calcium 9.8 mg/dL 8.6-10.3 Egfr Non- 22.6 >60 Egfr 29.1 >60 1 Laboratory test finding 07/26/2017 Magnesium 2.2 mg/dL 1.9-2.7 Basic Metabolic Panel 07/10/2017 Glucose 178 mg/dL High 70-100 Blood Urea Nitrogen 32 mg/dL High 6-24 Creatinine 1.65 mg/dL High 0.51-0.95 BUN/Creatinine Ratio 19.4 8-20 Egfr Non- 30.2 >60 Egfr 38.9 >60 2 Sodium 141 mmol/L 133-145 Potassium 4.3 mmol/L 3.5-5.0 Chloride 108 mmol/L 101-111 Co2 Carbon Dioxide 24 mmol/L 22-32 Anion Gap 9 mmol/L 2-11 Calcium 9.3 mg/dL 8.6-10.3 Laboratory test finding 07/10/2017 B-Type Natriuretic 218 pg/mL High 3 Peptide BNP Basic Metabolic Panel 06/14/2017 Sodium 138 mmol/L 133-145 Potassium 4.7 mmol/L 3.5-5.0 Chloride 107 mmol/L 101-111 Co2 Carbon Dioxide 25 mmol/L 22-32 Anion Gap 6 mmol/L 2-11 Glucose 102 mg/dL High 70-100 Blood Urea Nitrogen 44 mg/dL High 6-24 Creatinine 1.58 mg/dL High 0.51-0.95 BUN/Creatinine Ratio 27.8 High 8-20 Calcium 9.4 mg/dL 8.6-10.3 Egfr Non- 31.8 >60 Egfr 40.9 >60 4 Lipid Panel - [facility] 04/27/2017 Creatine Kinase(CK) 81 U/L 10-223 5 Comp Metabolic Panel 04/27/2017 Blood Urea Nitrogen 38 mg/dL High 6-24 Total Protein 6.3 g/dL Low 6.4-8.9 Albumin 4.0 g/dL 3.2-5.2 Globulin 2.3 g/dL 2-4 Albumin/Globulin Ratio 1.7 1-3 Total Bilirubin 0.40 mg/dL 0.2-1.0 Sodium 139 mmol/L 133-145 Potassium 4.8 mmol/L 3.5-5.0 Chloride 106 mmol/L 101-111 Co2 Carbon Dioxide 27 mmol/L 22-32 Anion Gap 6 mmol/L 2-11 Glucose 129 mg/dL High 70-100 Creatinine 1.67 mg/dL High 0.51-0.95 BUN/Creatinine Ratio 22.8 High 8-20 Calcium 9.3 mg/dL 8.6-10.3 Alkaline Phosphatase 129 U/L High 34-104 Alt 19 U/L 7-52 Ast 19 U/L 13-39 Egfr Non- 29.8 >60 Egfr 38.4 >60 6 Lipid Profile (Trig/Chol/HDL) 04/27/2017 Triglycerides 84 mg/dL 7 Cholesterol 159 mg/dL 8 HDL Cholesterol 62.8 mg/dL 9 LDL Cholesterol 79 mg/dL 10 Lipid Panel - [facility] 03/26/2017 Creatine Kinase(CK) 97 U/L 10-223 11 Comp Metabolic Panel 03/26/2017 Sodium 141 mmol/L 133-145 Potassium 4.2 mmol/L 3.5-5.0 Chloride 108 mmol/L 101-111 Co2 Carbon Dioxide 24 mmol/L 22-32 Anion Gap 9 mmol/L 2-11 Glucose 185 mg/dL High 70-100 Blood Urea Nitrogen 36 mg/dL High 6-24 Creatinine 1.76 mg/dL High 0.51-0.95 BUN/Creatinine Ratio 20.5 High 8-20 Calcium 9.4 mg/dL 8.6-10.3 Total Protein 6.9 g/dL 6.4-8.9 Albumin 4.4 g/dL 3.2-5.2 Globulin 2.5 g/dL 2-4 Albumin/Globulin Ratio 1.8 1-3 Total Bilirubin 0.50 mg/dL 0.2-1.0 Alkaline Phosphatase 134 U/L High 34-104 Alt 17 U/L 7-52 Ast 19 U/L 13-39 Egfr Non- 28.2 >60 Egfr 36.2 >60 12 Lipid Profile (Trig/Chol/HDL) 03/26/2017 Triglycerides 89 mg/dL 13 Cholesterol 240 mg/dL 14 HDL Cholesterol 71.9 mg/dL 15 LDL Cholesterol 150 mg/dL 16 Laboratory test finding 02/12/2017 B-Type Natriuretic 285 pg/mL High 17 Peptide BNP Basic Metabolic Panel 02/12/2017 Sodium 139 mmol/L 133-145 Potassium 4.3 mmol/L 3.5-5.0 Chloride 105 mmol/L 101-111 Co2 Carbon Dioxide 24 mmol/L 22-32 Anion Gap 10 mmol/L 2-11 Glucose 89 mg/dL 70-100 Blood Urea Nitrogen 36 mg/dL High 6-24 Creatinine 1.66 mg/dL High 0.51-0.95 BUN/Creatinine Ratio 21.7 High 8-20 Calcium 9.5 mg/dL 8.6-10.3 Egfr Non- 30.1 >60 Egfr 38.7 >60 18 Laboratory test finding 02/12/2017 Magnesium 1.9 mg/dL 1.9-2.7 Basic Metabolic Panel 01/11/2017 Sodium 139 mmol/L 133-145 Potassium 4.6 mmol/L 3.5-5.0 Chloride 106 mmol/L 101-111 Co2 Carbon Dioxide 24 mmol/L 22-32 Anion Gap 9 mmol/L 2-11 Glucose 142 mg/dL High 70-100 Blood Urea Nitrogen 35 mg/dL High 6-24 Creatinine 1.57 mg/dL High 0.51-0.95 BUN/Creatinine Ratio 22.3 High 8-20 Egfr Non- 32.1 >60 Egfr 41.3 >60 19 Calcium 9.5 mg/dL 8.6-10.3 Laboratory test finding 01/11/2017 B-Type Natriuretic Peptide BNP 278 pg/mL High 20 Magnesium 2.0 mg/dL 1.9-2.7 Lipid Panel - [facility] 06/05/2016 Creatine Kinase(CK) 63 U/L 10 Comp Metabolic Panel 06/05/2016 Sodium 140 mmol/L 133-145 Potassium 4.2 mmol/L 3.5-5.0 Chloride 107 mmol/L 101-111 Co2 Carbon Dioxide 26 mmol/L 22-32 Anion Gap 7 mmol/L 2-11 Glucose 90 mg/dL 70-100 Blood Urea Nitrogen 34 mg/dL High 6-24 Creatinine 1.48 mg/dL High 0.51-0.95 BUN/Creatinine Ratio 23.0 High 8-20 Calcium 9.6 mg/dL 8.6-10.3 Total Protein 6.6 g/dL 6.4-8.9 Albumin 4.2 g/dL 3.2-5.2 Globulin 2.4 g/dL 2-4 Albumin/Globulin Ratio 1.8 1-3 Total Bilirubin 0.50 mg/dL 0.2-1.0 Alkaline Phosphatase 110 U/L High 34-104 Alt 21 U/L 7-52 Ast 18 U/L 13-39 Egfr Non- 34.4 >60 Egfr 44.2 >60 21 Lipid Profile (Trig/Chol/HDL) 06/05/2016 Triglycerides 97 mg/dL 22 Cholesterol 215 mg/dL 23 HDL Cholesterol 57.4 mg/dL 24 LDL Cholesterol 138 mg/dL 25 CBC Auto Diff 06/05/2016 White Blood Count 12.8 10^3/uL High 3.5-10.8 Red Blood Count 4.00 10^6/uL 4.0-5.4 Hemoglobin 12.0 g/dL 12.0-16.0 Hematocrit 37 % 35-47 Mean Corpuscular Volume 93 fL 80-97 Mean Corpuscular Hemoglobin 30 pg 27-31 Mean Corpuscular HGB Conc 32 g/dL 31-36 Red Cell Distribution Width 15 % 10.5-15 Platelet Count 288 10^3/uL 150-450 Mean Platelet Volume 10 um3 7.4-10.4 Abs Neutrophils 10.0 10^3/uL High 1.5-7.7 Abs Lymphocytes 1.8 10^3/uL 1.0-4.8 Abs Monocytes 0.8 10^3/uL 0-0.8 Abs Eosinophils 0.2 10^3/uL 0-0.6 Abs Basophils 0.1 10^3/uL 0-0.2 Abs Nucleated RBC 0 10^3/uL Granulocyte % 78.1 % 38-83 Lymphocyte % 14.0 % Low 25-47 Monocyte % 5.8 % 1-9 Eosinophil % 1.3 % 0-6 Basophil % 0.8 % 0-2 Nucleated Red Blood Cells % 0 Laboratory test finding 06/05/2016 Magnesium 2.0 mg/dL 1.9-2.7 Basic Metabolic Panel 08/27/2014 Sodium 141 mmol/L 133-145 Potassium 4.2 mmol/L 3.5-5.0 Chloride 108 mmol/L 101-111 Co2 Carbon Dioxide 26 mmol/L 22-32 Anion Gap 7 mmol/L 2-11 Glucose 106 mg/dL High 70-100 Blood Urea Nitrogen 22 mg/dL 6-24 Creatinine 1.15 mg/dL High 0.51-0.95 BUN/Creatinine Ratio 19.1 8-20 Calcium 9.3 mg/dL 8.6-10.3 Egfr Non- 46.3 >60 Egfr 59.5 >60 26 CBC Auto Diff 08/27/2014 White Blood Count 9.0 10^3/uL 4.8-10.8 Red Blood Count 4.08 10^6/uL 4.0-5.4 Hemoglobin 12.4 g/dL 12.0-16.0 Hematocrit 38 % 35-47 Mean Corpuscular Volume 93 fL 80-97 Mean Corpuscular Hemoglobin 31 pg 27-31 Mean Corpuscular HGB Conc 33 g/dL 31-36 Red Cell Distribution Width 14 % 10.5-15 Platelet Count 342 10^3/uL 150-450 Mean Platelet Volume 9 um3 7.4-10.4 Abs Neutrophils 6.5 10^3/uL 1.5-7.7 Abs Lymphocytes 1.7 10^3/uL 1.0-4.8 Abs Monocytes 0.5 10^3/uL 0-0.8 Abs Eosinophils 0.2 10^3/uL 0-0.6 Abs Basophils 0.1 10^3/uL 0-0.2 Abs Nucleated RBC 0 10^3/uL Granulocyte % 72.5 % 38-83 Lymphocyte % 19.0 % Low 25-47 Monocyte % 5.6 % 1-9 Eosinophil % 1.7 % 0-6 Basophil % 1.2 % 0-2 Nucleated Red Blood Cells % 0.1 Laboratory test finding 08/27/2014 Magnesium 1.9 mg/dL 1.9-2.7 TSH (Thyroid Stimulating Horm) 1.41 IU/mL 0.34-5.60 Lipid Panel - [facility] 04/06/2014 Creatine Kinase 72 U/L 10-223 27, 28 Comp Metabolic Panel 04/06/2014 Sodium 138 mmol/L 133-145 27 Potassium 4.9 mmol/L 3.7-5.6 27 Chloride 107 mmol/L 101-111 27 Co2 Carbon Dioxide 25 mmol/L 22-32 27 Anion Gap 6 mmol/L 2-11 27 Glucose 162 mg/dL High 70-100 27 Blood Urea Nitrogen 23 mg/dL 6-24 27 Creatinine 1.18 mg/dL High 0.51-0.95 27 BUN/Creatinine Ratio 19.5 8-20 27 Calcium 9.5 mg/dL 8.6-10.3 27 Total Protein 6.6 g/dL 6.4-8.9 27 Albumin 4.2 g/dL 3.2-5.2 27 Globulin 2.4 g/dL 2-4 27 Albumin/Globulin Ratio 1.8 1-3 27 Total Bilirubin 0.60 mg/dL 0.2-1.0 27 Alkaline Phosphatase 125 U/L High 34-104 27 Alt 12 U/L 7-52 27 Ast 17 U/L 13-39 27 Egfr Non- 44.9 >60 27 Egfr 57.7 >60 27, 29 Lipid Profile (Trig/Chol/HDL) 04/06/2014 Triglycerides 117 mg/dL 27, 30 Cholesterol 181 mg/dL 27, 31 HDL Cholesterol 53.5 mg/dL 27, 32 LDL Cholesterol 104 mg/dL 27, 33 Lipid Panel - [facility] 01/08/2014 Creatine Kinase 87 U/L 10-223 27, 34 Comp Metabolic Panel 01/08/2014 Sodium 140 mmol/L 133-145 27 Potassium 4.2 mmol/L 3.7-5.6 27 Chloride 108 mmol/L 101-111 27 Co2 Carbon Dioxide 25 mmol/L 22-32 27 Anion Gap 7 mmol/L 2-11 27 Glucose 124 mg/dL High 70-100 27 Blood Urea Nitrogen 29 mg/dL High 6-24 27 Creatinine 1.15 mg/dL High 0.51-0.95 27 BUN/Creatinine Ratio 25.2 High 8-20 27 Calcium 9.4 mg/dL 8.6-10.3 27 Total Protein 6.6 g/dL 6.4-8.9 27 Albumin 4.3 g/dL 3.2-5.2 27 Globulin 2.3 g/dL 2-4 27 Albumin/Globulin Ratio 1.9 1-3 27 Total Bilirubin 0.50 mg/dL 0.2-1.0 27 Alkaline Phosphatase 116 U/L High 34-104 27 Alt 14 U/L 7-52 27 Ast 18 U/L 13-39 27 Egfr Non- 46.4 >60 27 Egfr 59.7 >60 27, 35 Lipid Profile (Trig/Chol/HDL) 01/08/2014 Triglycerides 107 mg/dL 27, 36 Cholesterol 228 mg/dL 27, 37 HDL Cholesterol 51.8 mg/dL 27, 38 LDL Cholesterol 155 mg/dL 27, 39 CBC Auto Diff 01/08/2014 White Blood Count 9.4 10^3/uL 4.8-10.8 27 Red Blood Count 4.03 10^6/uL 4.0-5.4 27 Hemoglobin 12.2 g/dL 12.0-16.0 27 Hematocrit 37 % 35-47 27 Mean Corpuscular Volume 91 fL 80-97 27 Mean Corpuscular Hemoglobin 30 pg 27-31 27 Mean Corpuscular HGB Conc 33 g/dL 31-36 27 Red Cell Distribution Width 15 % 10.5-15 27 Platelet Count 344 10^3/uL 150-450 27 Mean Platelet Volume 9 um3 7.4-10.4 27 Abs Neutrophils 7.0 10^3/uL 1.5-7.7 27 Abs Lymphocytes 1.5 10^3/uL 1.0-4.8 27 Abs Monocytes 0.7 10^3/uL 0-0.8 27 Abs Eosinophils 0.2 10^3/uL 0-0.6 27 Abs Basophils 0.1 10^3/uL 0-0.2 27 Abs Nucleated RBC 0.01 10^3/uL 27 Granulocyte % 74.2 % 38-83 27 Lymphocyte % 15.6 % Low 25-47 27 Monocyte % 7.1 % 1-9 27 Eosinophil % 2.4 % 0-6 27 Basophil % 0.7 % 0-2 27 Nucleated Red Blood Cells % 0.1 27 Laboratory test finding 04/14/2013 Inr 3.42 High 0.87-0.97 40 Comp Metabolic Panel 11/22/2012 Sodium 140 mmol/L 133-145 Potassium 4.6 mmol/L 3.5-5.0 Chloride 107 mmol/L 101-111 Co2 Carbon Dioxide 26.0 mmol/L 22-32 Anion Gap 7.0 mmol/L 2-11 Glucose 125 mg/dL High 70-100 Blood Urea Nitrogen 24 mg/dL 6-24 Creatinine 1.10 mg/dL 0.50-1.40 BUN/Creatinine Ratio 21.8 High 8-20 Calcium 9.2 mg/dL 8.1-9.9 Total Protein 6.5 g/dL 6.2-8.1 Albumin 4.1 g/dL 3.2-5.2 Globulin 2.4 g/dL 2-4 Albumin/Globulin Ratio 1.7 1-3 Total Bilirubin 0.6 mg/dL 0.4-1.5 Alkaline Phosphatase 124 U/L High 30-110 Alt 19 U/L 14-54 Ast 25 U/L 12-42 Egfr Non- 49.0 >60 Egfr 63.0 >60 41 Laboratory test finding 11/22/2012 Inr 2.35 High 0.87-0.97 CBC Auto Diff 11/22/2012 White Blood Count 11.1 10^3/uL High 4.8-10.8 Red Blood Count 4.23 10^6/uL 4.0-5.4 Hemoglobin 12.5 g/dL 12.0-16.0 Hematocrit 39 % 35-47 Mean Corpuscular Volume 93 fL 80-97 Mean Corpuscular Hemoglobin 30 pg 27-31 Mean Corpuscular HGB Conc 32 g/dL 31-36 Red Cell Distribution Width 14 % 10.5-15 Platelet Count 372 10^3/uL 150-450 Mean Platelet Volume 9 um3 7.4-10.4 Abs Neutrophils 8.4 10^3/uL High 1.5-7.7 Abs Lymphocytes 1.8 10^3/uL 1.0-4.8 Abs Monocytes 0.7 10^3/uL 0-0.8 Abs Eosinophils 0.1 10^3/uL 0-0.6 Abs Basophils 0.1 10^3/uL 0-0.2 Abs Nucleated RBC 0 10^3/uL Granulocyte % 75.5 % 38-83 Lymphocyte % 16.2 % Low 25-47 Monocyte % 6.3 % 1-9 Eosinophil % 0.8 % 0-6 Basophil % 1.2 % 0-2 Nucleated Red Blood Cells % 0 CBC Auto Diff 07/15/2012 White Blood Count 9.0 10^3/uL 4.8-10.8 Red Blood Count 4.15 10^6/uL 4.0-5.4 Hemoglobin 12.7 g/dL 12.0-16.0 Hematocrit 39 % 35-47 Mean Corpuscular Volume 94 fL 80-97 Mean Corpuscular Hemoglobin 31 pg 27-31 Mean Corpuscular HGB Conc 33 g/dL 31-36 Red Cell Distribution Width 14 % 10.5-15 Platelet Count 327 10^3/uL 150-450 Mean Platelet Volume 9 um3 7.4-10.4 Abs Neutrophils 6.2 10^3/uL 1.5-7.7 Abs Lymphocytes 1.9 10^3/uL 1.0-4.8 Abs Monocytes 0.7 10^3/uL 0-0.8 Abs Eosinophils 0.2 10^3/uL 0-0.6 Abs Basophils 0 10^3/uL 0-0.2 Abs Nucleated RBC 0 10^3/uL Granulocyte % 68.5 % 38-83 Lymphocyte % 20.9 % Low 25-47 Monocyte % 8.0 % 1-9 Eosinophil % 2.2 % 0-6 Basophil % 0.4 % 0-2 Nucleated Red Blood Cells % 0 Laboratory test finding 07/15/2012 Inr 2.75 High 0.82-1.17 42 Basic Metabolic Panel 07/15/2012 Sodium 141 mmol/L 133-145 Potassium 4.5 mmol/L 3.5-5.0 Chloride 109 mmol/L 101-111 Co2 Carbon Dioxide 26.0 mmol/L 22-32 Anion Gap 6.0 mmol/L 2-11 Glucose 132 mg/dL High 70-100 Blood Urea Nitrogen 21 mg/dL 6-24 Creatinine 0.90 mg/dL 0.50-1.40 BUN/Creatinine Ratio 23.3 High 8-20 Calcium 9.3 mg/dL 8.1-9.9 Egfr Non- 61.7 >60 Egfr 79.4 >60 43 Basic Metabolic Panel 07/05/2012 Sodium 137 mmol/L 133-145 Potassium 4.5 mmol/L 3.5-5.0 Chloride 108 mmol/L 101-111 Co2 Carbon Dioxide 27.0 mmol/L 22-32 Anion Gap 2.0 mmol/L 2-11 Glucose 100 mg/dL 70-100 Blood Urea Nitrogen 23 mg/dL 6-24 Creatinine 1.00 mg/dL 0.50-1.40 BUN/Creatinine Ratio 23.0 High 8-20 Calcium 9.1 mg/dL 8.1-9.9 Egfr Non- 54.7 >60 Egfr 70.3 >60 44 Comp Metabolic Panel 06/03/2012 Sodium 141 mmol/L 133-145 Potassium 3.8 mmol/L 3.5-5.0 Chloride 109 mmol/L 101-111 Co2 Carbon Dioxide 25.0 mmol/L 22-32 Anion Gap 7.0 mmol/L 2-11 Glucose 168 mg/dL High 70-100 Blood Urea Nitrogen 19 mg/dL 6-24 Creatinine 1.00 mg/dL 0.50-1.40 BUN/Creatinine Ratio 19.0 8-20 Calcium 9.5 mg/dL 8.1-9.9 Total Protein 6.2 GM/DL 6.2-8.1 Albumin 4.1 GM/DL 3.2-5.2 Globulin 2.1 GM/DL 2-4 Albumin/Globulin Ratio 2.0 1-3 Total Bilirubin 0.7 mg/dL 0.1-1.0 45 Alkaline Phosphatase 91 U/L 30-110 Alt 15 U/L 14-54 Ast 22 U/L 12-42 Egfr Non- 54.7 >60 Egfr 70.3 >60 46 Lipid Profile (Trig/Chol/HDL) 06/03/2012 Triglycerides 171 mg/dL 40-200 Cholesterol 260 mg/dL High Less than 200 47 HDL Cholesterol 57 mg/dL 40-60 48 Cholesterol/HDL Ratio 4.6 AVERAGE High 1-4.44 LDL Cholesterol 168.8 mg/dL High Less Than 100 Laboratory test finding 06/03/2012 Creatine Kinase 70 U/L 0-200 Comp Metabolic Panel 09/18/2011 Sodium 141 mmol/L 135-145 49 Potassium 4.5 mmol/L 3.5-5.0 49 Chloride 108 mmol/L 101-111 49 Co2 (Carbon Dioxide) 29.0 mmol/L 22-32 49 Anion Gap 4.0 mmol/L 2-11 49, 50 Glucose 113 mg/dL High 70-100 49 BUN 18 mg/dL 6-24 49 Creatinine 1.1 mg/dL 0.50-1.40 49 One Over Creatinine 0.90 49 BUN/Creatinine Ratio 16.4 8-20 49 Calcium 9.3 mg/dL 8.1-9.9 49 Total Protein 6.1 GM/DL Low 6.2-8.1 49 Albumin 4.0 GM/DL 3.2-5.2 49 Globulin 2.1 GM/DL 2-4 49 Albumin/Globulin Ratio 1.9 1-3 49 Bilirubin Total 0.5 mg/dL 0.4-1.5 49, 51 Alkaline Phosphatase 115 U/L High 30-110 49 Alt (SGPT) 20 U/L 14-54 49 Ast (Sgot) 23 U/L 12-42 49 eGFR Non- 49.1 > 60 49 eGFR 63.1 > 60 49, 52 Lipid Profile (Trig/Chol/HDL) 09/18/2011 Triglyceride 100 mg/dL 40-200 49 Cholesterol 186 mg/dL Less Than 200 49, 53 High Density Lipoprotein 54 mg/dL 40-60 49, 54 Cholesterol/HDL Ratio 3.44 AVERAGE 1-4.44 49 Low Density Lipoprotein 112 mg/dL High Less Than 100 49, 55 Laboratory test finding 09/18/2011 CPK (Creatine Kinase) 106 U/L 0-170 49 Lipid Panel - [facility] 12/12/2010 CPK (Creatine Kinase) 82 U/L 0-170 Comp Metabolic Panel 12/12/2010 Sodium 140 mmol/L 135-145 Potassium 4.0 mmol/L 3.5-5.0 Chloride 109 mmol/L 101-111 Co2 (Carbon Dioxide) 25.0 mmol/L 22-32 Anion Gap 6.0 mmol/L 2-11 56 Glucose 107 mg/dL High 70-100 BUN 19 mg/dL 6-24 Creatinine 1.10 mg/dL 0.50-1.40 One Over Creatinine 0.90 BUN/Creatinine Ratio 17.3 8-20 Calcium 9.3 mg/dL 8.1-9.9 Total Protein 6.1 GM/DL Low 6.2-8.1 Albumin 4.1 GM/DL 3.2-5.2 Globulin 2.0 GM/DL 2-4 Albumin/Globulin Ratio 2.1 1-3 Bilirubin Total 0.7 mg/dL 0.4-1.5 57 Alkaline Phosphatase 100 U/L 30-110 Alt (SGPT) 16 U/L 14-54 Ast (Sgot) 22 U/L 12-42 eGFR Non- 49.2 > 60 eGFR 63.3 > 60 58 Lipid Profile (Trig/Chol/HDL) 12/12/2010 Triglyceride 165 mg/dL 40-200 Cholesterol 191 mg/dL Less Than 200 59 High Density Lipoprotein 52 mg/dL 40-60 60 Cholesterol/HDL Ratio 3.67 AVERAGE 1-4.44 Low Density Lipoprotein 106 mg/dL High Less Than 100 61 Lipid Panel - [facility] 05/11/2010 CPK (Creatine Kinase) 85 U/L 0-170 Comp Metabolic Panel 05/11/2010 Sodium 139 mmol/L 135-145 Potassium 4.2 mmol/L 3.5-5.0 Chloride 106 mmol/L 101-111 Co2 (Carbon Dioxide) 26.0 mmol/L 22-32 Anion Gap 7.0 mmol/L 2-11 62 Glucose 125 mg/dL High 70-100 63 BUN 20 mg/dL 6-24 Creatinine 1.00 mg/dL 0.50-1.40 One Over Creatinine 1.00 BUN/Creatinine Ratio 20.0 8-20 Calcium 9.0 mg/dL 8.1-9.9 Total Protein 6.0 GM/DL Low 6.2-8.1 Albumin 4.4 GM/DL 3.2-5.2 Globulin 1.6 GM/DL Low 2-4 Albumin/Globulin Ratio 2.8 1-3 Bilirubin Total 0.9 mg/dL 0.4-1.5 64 Alkaline Phosphatase 96 U/L 30-110 Alt (SGPT) 17 U/L 14-54 Ast (Sgot) 23 U/L 12-42 eGFR Non- 58.4 > 60 eGFR 70.7 > 60 65 Lipid Profile (Trig/Chol/HDL) 05/11/2010 Triglyceride 141 mg/dL 40-200 Cholesterol 198 mg/dL Less Than 200 66 High Density Lipoprotein 50 mg/dL 40-60 67 Cholesterol/HDL Ratio 3.96 AVERAGE 1-4.44 Low Density Lipoprotein 120 mg/dL High Less Than 100 68 Laboratory test finding 01/23/2010 Troponin-I (TnI) 0 NG/ML 69 Protime 01/23/2010 Inr 3.03 High 0.97-1.03 70 Protime 36.2 SEC High 11.5-12.2 71 Laboratory test finding 01/23/2010 PTT (Aptt) 55.0 High 25.15-38.53 72 Lipid Panel - [facility] 11/05/2009 CPK (Creatine 109 U/L 0-170 Kinase) Comp Metabolic Panel 11/05/2009 Sodium 141 mmol/L 135-145 Potassium 3.9 mmol/L 3.5-5.0 Chloride 107 mmol/L 101-111 Co2 (Carbon Dioxide) 24.0 mmol/L 22-32 Anion Gap 10.0 mmol/L 2-11 73 Glucose 118 mg/dL High 70-100 74 BUN 21 mg/dL 6-24 Creatinine 1.20 mg/dL 0.50-1.40 One Over Creatinine 0.80 BUN/Creatinine Ratio 17.5 8-20 Calcium 9.5 mg/dL 8.1-9.9 75 Total Protein 6.3 GM/DL 6.2-8.1 Albumin 4.3 GM/DL 3.2-5.2 Globulin 2.0 GM/DL 2-4 Albumin/Globulin Ratio 2.2 1-3 Bilirubin Total 0.9 mg/dL 0.4-1.5 76 Alkaline Phosphatase 116 U/L High 30-110 Alt (SGPT) 23 U/L 14-54 Ast (Sgot) 24 U/L 12-42 eGFR Non- 47.5 > 60 eGFR 57.5 > 60 77 Lipid Profile (Trig/Chol/HDL) 11/05/2009 Triglyceride 136 mg/dL 40-200 Cholesterol 208 mg/dL High Less Than 200 78 High Density Lipoprotein 49 mg/dL 40-60 79 Cholesterol/HDL Ratio 4.24 AVERAGE 1-4.44 Low Density Lipoprotein 132 mg/dL High Less Than 100 80 Lipid Panel - [facility] 09/04/2009 CPK (Creatine Kinase) 105 U/L 0-170 Comp Metabolic Panel 09/04/2009 Sodium 144 mmol/L 135-145 Potassium 4.5 mmol/L 3.5-5.0 Chloride 108 mmol/L 101-111 Co2 (Carbon Dioxide) 31.0 mmol/L 22-32 Anion Gap 5.0 mmol/L 2-11 81 Glucose 126 mg/dL High 70-100 82 BUN 21 mg/dL 6-24 Creatinine 1.10 mg/dL 0.50-1.40 One Over Creatinine 0.90 BUN/Creatinine Ratio 19.1 8-20 Calcium 9.7 mg/dL 8.1-9.9 83 Total Protein 6.0 GM/DL Low 6.2-8.1 Albumin 4.1 GM/DL 3.2-5.2 Globulin 1.9 GM/DL Low 2-4 Albumin/Globulin Ratio 2.2 1-3 Bilirubin Total 0.7 mg/dL 0.4-1.5 84 Alkaline Phosphatase 126 U/L High 30-110 Alt (SGPT) 20 U/L 14-54 Ast (Sgot) 24 U/L 12-42 eGFR Non- 52.5 > 60 eGFR 63.5 > 60 85 Lipid Profile (Trig/Chol/HDL) 09/04/2009 Triglyceride 118 mg/dL 40-200 Cholesterol 209 mg/dL High Less Than 200 86 High Density Lipoprotein 57 mg/dL 40-60 87 Cholesterol/HDL Ratio 3.67 AVERAGE 1-4.44 Low Density Lipoprotein 128 mg/dL High Less Than 100 88 Basic Metabolic Panel 07/26/2009 Sodium 143 mmol/L 135-145 Potassium 4.7 mmol/L 3.5-5.0 Chloride 112 mmol/L High 101-111 Co2 (Carbon Dioxide) 28.3 mmol/L 22-32 Anion Gap 2.7 mmol/L 2-11 89 Glucose 160 mg/dL High 70-100 90 BUN 26 mg/dL High 6-24 Creatinine 1.03 mg/dL 0.50-1.40 One Over Creatinine 0.90 BUN/Creatinine Ratio 25.2 High 8-20 Calcium 9.6 mg/dL 8.1-9.9 91 eGFR Non- 56.6 > 60 eGFR 68.5 > 60 92 Comp Metabolic Panel 07/05/2009 Sodium 142 mmol/L 135-145 Potassium 3.8 mmol/L 3.5-5.0 Chloride 109 mmol/L 101-111 Co2 (Carbon Dioxide) 27.0 mmol/L 22-32 Anion Gap 6.0 mmol/L 2-11 93 Glucose 107 mg/dL High 70-100 94 BUN 23 mg/dL 6-24 Creatinine 1.00 mg/dL 0.50-1.40 One Over Creatinine 1.00 BUN/Creatinine Ratio 23.0 High 8-20 Calcium 9.3 mg/dL 8.1-9.9 95 Total Protein 6.4 GM/DL 6.2-8.1 Albumin 4.1 GM/DL 3.2-5.2 Globulin 2.3 GM/DL 2-4 Albumin/Globulin Ratio 1.8 1-3 Bilirubin Total 0.7 mg/dL 0.4-1.5 96 Alkaline Phosphatase 111 U/L High 30-110 Alt (SGPT) 18 U/L 14-54 Ast (Sgot) 22 U/L 12-42 eGFR Non- 58.6 > 60 eGFR 70.9 > 60 97 Lipid Profile (Trig/Chol/HDL) 07/05/2009 Triglyceride 124 mg/dL 40-200 Cholesterol 251 mg/dL High Less Than 200 98 High Density Lipoprotein 49 mg/dL 40-60 99 Cholesterol/HDL Ratio 5.12 AVERAGE High 1-4.44 Low Density Lipoprotein 177 mg/dL High Less Than 100 100 Laboratory test finding 07/05/2009 CPK (Creatine Kinase) 93 U/L 0-170 1 Because ethnic data is not always readily available, this report includes an eGFR for both -Americans and non- Americans. The National Kidney Disease Education Program (NKDEP) does not endorse the use of the MDRD equation for patients that are not between the ages of 18 and 70, are , have extremes of body size, muscle mass, or nutritional status, or are non- or non-. According to the [employer], irrespective of diagnosis, the stage of the disease is based on the level of kidney function: Stage Description GFR(mL/min/1.73 m(2)) 1 Kidney damage with normal or decreased GFR 90 2 Kidney damage with mild decrease in GFR 60-89 3 Moderate decrease in GFR 30-59 4 Severe decrease in GFR 15-29 5 Kidney failure <15 (or dialysis) 2 Because ethnic data is not always readily available, this report includes an eGFR for both -Americans and non- Americans. The National Kidney Disease Education Program (NKDEP) does not endorse the use of the MDRD equation for patients that are not between the ages of 18 and 70, are , have extremes of body size, muscle mass, or nutritional status, or are non- or non-. According to the National [employer], irrespective of diagnosis, the stage of the disease is based on the level of kidney function: Stage Description GFR(mL/min/1.73 m(2)) 1 Kidney damage with normal or decreased GFR 90 2 Kidney damage with mild decrease in GFR 60-89 3 Moderate decrease in GFR 30-59 4 Severe decrease in GFR 15-29 5 Kidney failure <15 (or dialysis) 3 >100 to <200 pg/mL: likely compensated congestive heart failure (CHF) 200 to 400 pg/mL: likely moderate CHF >400 pg/mL: likely moderate to severe CHF 4 Because ethnic data is not always readily available, this report includes an eGFR for both -Americans and non- Americans. The National Kidney Disease Education Program (NKDEP) does not endorse the use of the MDRD equation for patients that are not between the ages of 18 and 70, are , have extremes of body size, muscle mass, or nutritional status, or are non- or non-. According to the National [employer], irrespective of diagnosis, the stage of the disease is based on the level of kidney function: Stage Description GFR(mL/min/1.73 m(2)) 1 Kidney damage with normal or decreased GFR 90 2 Kidney damage with mild decrease in GFR 60-89 3 Moderate decrease in GFR 30-59 4 Severe decrease in GFR 15-29 5 Kidney failure <15 (or dialysis) 5 FASTING 8 HOUR Fasting in 1 month 6 Because ethnic data is not always readily available, this report includes an eGFR for both -Americans and non- Americans. The National Kidney Disease Education Program (NKDEP) does not endorse the use of the MDRD equation for patients that are not between the ages of 18 and 70, are , have extremes of body size, muscle mass, or nutritional status, or are non- or non-. According to the National [employer], irrespective of diagnosis, the stage of the disease is based on the level of kidney function: Stage Description GFR(mL/min/1.73 m(2)) 1 Kidney damage with normal or decreased GFR 90 2 Kidney damage with mild decrease in GFR 60-89 3 Moderate decrease in GFR 30-59 4 Severe decrease in GFR 15-29 5 Kidney failure <15 (or dialysis) 7 Desirable <150 Borderline high 150-199 High 200-499 Very High >500 8 Desirable <200 Borderline high 200-239 High >239 9 Low <40 Desirable: 40-60 High: >60 10 Desirable: <100 mg/dL Near Optimal: 100-129 mg/dL Borderline High: 130-159 mg/dL High: 160-189 mg/dL Very High: >189 mg/dL 11 fasting in 2 months 12 Because ethnic data is not always readily available, this report includes an eGFR for both -Americans and non- Americans. The National Kidney Disease Education Program (NKDEP) does not endorse the use of the MDRD equation for patients that are not between the ages of 18 and 70, are , have extremes of body size, muscle mass, or nutritional status, or are non- or non-. According to the National [employer], irrespective of diagnosis, the stage of the disease is based on the level of kidney function: Stage Description GFR(mL/min/1.73 m(2)) 1 Kidney damage with normal or decreased GFR 90 2 Kidney damage with mild decrease in GFR 60-89 3 Moderate decrease in GFR 30-59 4 Severe decrease in GFR 15-29 5 Kidney failure <15 (or dialysis) 13 Desirable <150 Borderline high 150-199 High 200-499 Very High >500 14 Desirable <200 Borderline high 200-239 High >239 15 Low <40 Desirable: 40-60 High: >60 16 Desirable: <100 mg/dL Near Optimal: 100-129 mg/dL Borderline High: 130-159 mg/dL High: 160-189 mg/dL Very High: >189 mg/dL 17 >100 to <200 pg/mL: likely compensated congestive heart failure (CHF) 200 to 400 pg/mL: likely moderate CHF >400 pg/mL: likely moderate to severe CHF 18 Because ethnic data is not always readily available, this report includes an eGFR for both -Americans and non- Americans. The National Kidney Disease Education Program (NKDEP) does not endorse the use of the MDRD equation for patients that are not between the ages of 18 and 70, are , have extremes of body size, muscle mass, or nutritional status, or are non- or non-. According to the National [employer], irrespective of diagnosis, the stage of the disease is based on the level of kidney function: Stage Description GFR(mL/min/1.73 m(2)) 1 Kidney damage with normal or decreased GFR 90 2 Kidney damage with mild decrease in GFR 60-89 3 Moderate decrease in GFR 30-59 4 Severe decrease in GFR 15-29 5 Kidney failure <15 (or dialysis) 19 Because ethnic data is not always readily available, this report includes an eGFR for both -Americans and non- Americans. The National Kidney Disease Education Program (NKDEP) does not endorse the use of the MDRD equation for patients that are not between the ages of 18 and 70, are , have extremes of body size, muscle mass, or nutritional status, or are non- or non-. According to the National [employer], irrespective of diagnosis, the stage of the disease is based on the level of kidney function: Stage Description GFR(mL/min/1.73 m(2)) 1 Kidney damage with normal or decreased GFR 90 2 Kidney damage with mild decrease in GFR 60-89 3 Moderate decrease in GFR 30-59 4 Severe decrease in GFR 15-29 5 Kidney failure <15 (or dialysis) 20 >100 to <200 pg/mL: likely compensated congestive heart failure (CHF) 200 to 400 pg/mL: likely moderate CHF >400 pg/mL: likely moderate to severe CHF 21 Because ethnic data is not always readily available, this report includes an eGFR for both -Americans and non- Americans. The National Kid[employer] Disease Education Program (NKDEP) does not endorse the use of the MDRD equation for patients that are not between the ages of 18 and 70, are , have extremes of body size, muscle mass, or nutritional status, or are non- or non-. According to the [employer], irrespective of diagnosis, the stage of the disease is based on the level of kidney function: Stage Description GFR(mL/min/1.73 m(2)) 1 Kidney damage with normal or decreased GFR 90 2 Kidney damage with mild decrease in GFR 60-89 3 Moderate decrease in GFR 30-59 4 Severe decrease in GFR 15-29 5 Kidney failure <15 (or dialysis) 22 Desirable <150 Borderline high 150-199 High 200-499 Very High >500 23 Desirable <200 Borderline high 200-239 High >239 24 Low <40 Desirable: 40-60 High: >60 25 Desirable: <100 mg/dL Near Optimal: 100-129 mg/dL Borderline High: 130-159 mg/dL High: 160-189 mg/dL Very High: >189 mg/dL 26 Because ethnic data is not always readily available, this report includes an eGFR for both -Americans and non- Americans. The National Kid[employer] Disease Education Program (NKDEP) does not endorse the use of the MDRD equation for patients that are not between the ages of 18 and 70, are , have extremes of body size, muscle mass, or nutritional status, or are non- or non-. According to the National [employer], irrespective of diagnosis, the stage of the disease is based on the level of kidney function: Stage Description GFR(mL/min/1.73 m(2)) 1 Kidney damage with normal or decreased GFR 90 2 Kidney damage with mild decrease in GFR 60-89 3 Moderate decrease in GFR 30-59 4 Severe decrease in GFR 15-29 5 Kidney failure <15 (or dialysis) 27 PT IS FASTING 28 PT IS FASTING 29 Because ethnic data is not always readily available, this report includes an eGFR for both -Americans and non- Americans. The National Kidney Disease Education Program (NKDEP) does not endorse the use of the MDRD equation for patients that are not between the ages of 18 and 70, are , have extremes of body size, muscle mass, or nutritional status, or are non- or non-. According to the National Kid[employer] Foundation, irrespective of diagnosis, the stage of the disease is based on the level of kidney function: Stage Description GFR(mL/min/1.73 m(2)) 1 Kidney damage with normal or decreased GFR 90 2 Kidney damage with mild decrease in GFR 60-89 3 Moderate decrease in GFR 30-59 4 Severe decrease in GFR 15-29 5 Kidney failure <15 (or dialysis) 30 Desirable <150 Borderline high 150-199 High 200-499 Very High >500 31 Desirable <200 Borderline high 200-239 High >239 32 Low <40 Desirable: 40-60 High: >60 33 Desirable <100 Near Optimal 100-129 Borderline high 130-159 High 160-189 Very High >189 34 PT IS FASTING 35 Because ethnic data is not always readily available, this report includes an eGFR for both -Americans and non- Americans. The National Kidney Disease Education Program (NKDEP) does not endorse the use of the MDRD equation for patients that are not between the ages of 18 and 70, are , have extremes of body size, muscle mass, or nutritional status, or are non- or non-. According to the National Kid[employer], irrespective of diagnosis, the stage of the disease is based on the level of kidney function: Stage Description GFR(mL/min/1.73 m(2)) 1 Kidney damage with normal or decreased GFR 90 2 Kidney damage with mild decrease in GFR 60-89 3 Moderate decrease in GFR 30-59 4 Severe decrease in GFR 15-29 5 Kidney failure <15 (or dialysis) 36 Desirable <150 Borderline high 150-199 High 200-499 Very High >500 37 Desirable <200 Borderline high 200-239 High >239 38 Low <40 Desirable: 40-60 High: >60 39 Desirable <100 Near Optimal 100-129 Borderline high 130-159 High 160-189 Very High >189 40 CALL RESULTS TO [facility] 41 Because ethnic data is not always readily available, this report includes an eGFR for both -Americans and non- Americans. The National Kidney Disease Education Program (NKDEP) does not endorse the use of the MDRD equation for patients that are not between the ages of 18 and 70, are , have extremes of body size, muscle mass, or nutritional status, or are non- or non-. According to the National Kid[employer] Foundation, irrespective of diagnosis, the stage of the disease is based on the level of kidney function: Stage Description GFR(mL/min/1.73 m(2)) 1 Kidney damage with normal or decreased GFR 90 2 Kidney damage with mild decrease in GFR 60-89 3 Moderate decrease in GFR 30-59 4 Severe decrease in GFR 15-29 5 Kidney failure <15 (or dialysis) 42 The INR(International Normalized Ratio) was adopted by the World Health Organization (WHO) in 1982 as a standardized system of reporting PT (Prothrombin Time). The Centers for Disease Control (CDC) states that reporting of PT results in INR only is the preferred method. Recommended INR for Patients on Oral Anticoagulants Prophylaxis 2.0 - 3.0 Treatment of thrombosis 2.0 - 3.0 Prevention of embolism 2.0 - 3.0 Prevention of embolism from prosthetic heart valves 2.5 - 3.5 43 Because ethnic data is not always readily available, this report includes an eGFR for both -Americans and non- Americans. The National Kidney Disease Education Program (NKDEP) does not endorse the use of the MDRD equation for patients that are not between the ages of 18 and 70, are , have extremes of body size, muscle mass, or nutritional status, or are non- or non-. According to the National Kidney Foundation, irrespective of diagnosis, the stage of the disease is based on the level of kidney function: Stage Description GFR(mL/min/1.73 m(2)) 1 Kidney damage with normal or decreased GFR 90 2 Kidney damage with mild decrease in GFR 60-89 3 Moderate decrease in GFR 30-59 4 Severe decrease in GFR 15-29 5 Kidney failure <15 (or dialysis) 44 Because ethnic data is not always readily available, this report includes an eGFR for both -Americans and non- Americans. The National Kidney Disease Education Program (NKDEP) does not endorse the use of the MDRD equation for patients that are not between the ages of 18 and 70, are , have extremes of body size, muscle mass, or nutritional status, or are non- or non-. According to the National Kidney Foundation, irrespective of diagnosis, the stage of the disease is based on the level of kidney function: Stage Description GFR(mL/min/1.73 m(2)) 1 Kidney damage with normal or decreased GFR 90 2 Kidney damage with mild decrease in GFR 60-89 3 Moderate decrease in GFR 30-59 4 Severe decrease in GFR 15-29 5 Kidney failure <15 (or dialysis) 45 A metabolite of Naproxen, O-desmethylnaproxen, has been shown to interfere with the Jendrassik-Brandyn method for measuring total bilirubin. Samples from patients who have taken Naproxen have shown spurious elevation in total bilirubin levels. 46 Because ethnic data is not always readily available, this report includes an eGFR for both -Americans and non- Americans. The National Kidney Disease Education Program (NKDEP) does not endorse the use of the MDRD equation for patients that are not between the ages of 18 and 70, are , have extremes of body size, muscle mass, or nutritional status, or are non- or non-. According to the National Kidney Foundation, irrespective of diagnosis, the stage of the disease is based on the level of kidney function: Stage Description GFR(mL/min/1.73 m(2)) 1 Kidney damage with normal or decreased GFR 90 2 Kidney damage with mild decrease in GFR 60-89 3 Moderate decrease in GFR 30-59 4 Severe decrease in GFR 15-29 5 Kidney failure <15 (or dialysis) 47 Desirable: Less than 200 MG/DL Borderline-High Risk: 200-239 MG/DL High-Risk: 240 MG/DL and over 48 HDL Interpretation: Undesirable: High Risk: Less than 40 MG/DL Desirable: Low Risk: Greater than 60 MG/DL 49 FASTING 50 Anion gap measurement may be of limited value in the presence of any alkalosis, especially in a combined acid base disorder. . 51 A metabolite of Naproxen, O-desmethylnaproxen, has been shown to interfere with the Jendrassik-Brandyn method for measuring total bilirubin. Samples from patients who have taken Naproxen have shown spurious elevation in total bilirubin levels. 52 Because ethnic data is not always readily available, this report includes an eGFR for both -Americans and non- Americans. The National Kidney Disease Education Program (NKDEP) does not endorse the use of the MDRD equation for patients that are not between the ages of 18 and 70, are , have extremes of body size, muscle mass, or nutritional status, or are non- or non-. According to the National Kidney Foundation, irrespective of diagnosis, the stage of the disease is based on the level of kidney function: Stage Description GFR(mL/min/1.73 m(2)) 1 Kidney damage with normal or decreased GFR 90 2 Kidney damage with mild decrease in GFR 60-89 3 Moderate decrease in GFR 30-59 4 Severe decrease in GFR 15-29 5 Kidney failure <15 (or dialysis) 53 CHOLESTEROL INTERPRETATION: Desirable: Less than 200 MG/DL Borderline-High Risk: 200-239 MG/DL High-Risk: 240 MG/DL and over 54 HDL INTERPRETATION: Undesirable: High Risk: Less than 40 MG/DL Desirable: Low Risk: Greater than 60 MG/DL 55 LDL INTERPRETATION: Low Risk Optimal Level: LDL Less than 100 MG/DL Near or Above Optimal: LDL 100-129 MG/DL Borderline High Risk: LDL 130-159 MG/DL High Risk: LDL 160-189 MG/DL Very High Risk: LDL Greater than 189 MG/DL 56 Anion gap measurement may be of limited value in the presence of any alkalosis, especially in a combined acid base disorder. . 57 A metabolite of Naproxen, O-desmethylnaproxen, has been shown to interfere with the Jendrassik-Brandyn method for measuring total bilirubin. Samples from patients who have taken Naproxen have shown spurious elevation in total bilirubin levels. 58 Because ethnic data is not always readily available, this report includes an eGFR for both -Americans and non- Americans. The National Kidney Disease Education Program (NKDEP) does not endorse the use of the MDRD equation for patients that are not between the ages of 18 and 70, are , have extremes of body size, muscle mass, or nutritional status, or are non- or non-. According to the National Kidney Foundation, irrespective of diagnosis, the stage of the disease is based on the level of kidney function: Stage Description GFR(mL/min/1.73 m(2)) 1 Kidney damage with normal or decreased GFR 90 2 Kidney damage with mild decrease in GFR 60-89 3 Moderate decrease in GFR 30-59 4 Severe decrease in GFR 15-29 5 Kidney failure <15 (or dialysis) 59 CHOLESTEROL INTERPRETATION: Desirable: Less than 200 MG/DL Borderline-High Risk: 200-239 MG/DL High-Risk: 240 MG/DL and over 60 HDL INTERPRETATION: Undesirable: High Risk: Less than 40 MG/DL Desirable: Low Risk: Greater than 60 MG/DL 61 LDL INTERPRETATION: Low Risk Optimal Level: LDL Less than 100 MG/DL Near or Above Optimal: LDL 100-129 MG/DL Borderline High Risk: LDL 130-159 MG/DL High Risk: LDL 160-189 MG/DL Very High Risk: LDL Greater than 189 MG/DL 62 Anion gap measurement may be of limited value in the presence of any alkalosis, especially in a combined acid base disorder. . 63 Note change in reference range as of 04/02/08. The change was based on recommendations from the [place] [employer]. 64 A metabolite of Naproxen, O-desmethylnaproxen, has been shown to interfere with the Jendrassik-Brandyn method for measuring total bilirubin. Samples from patients who have taken Naproxen have shown spurious elevation in total bilirubin levels. 65 Because ethnic data is not always readily available, this report includes an eGFR for both -Americans and non- Americans. The National Kidney Disease Education Program (NKDEP) does not endorse the use of the MDRD equation for patients that are not between the ages of 18 and 70, are , have extremes of body size, muscle mass, or nutritional status, or are non- or non-. According to the National Kidney Foundation, irrespective of diagnosis, the stage of the disease is based on the level of kidney function: Stage Description GFR(mL/min/1.73 m(2)) 1 Kidney damage with normal or decreased GFR 90 2 Kidney damage with mild decrease in GFR 60-89 3 Moderate decrease in GFR 30-59 4 Severe decrease in GFR 15-29 5 Kidney failure <15 (or dialysis) 66 CHOLESTEROL INTERPRETATION: Desirable: Less than 200 MG/DL Borderline-High Risk: 200-239 MG/DL High-Risk: 240 MG/DL and over 67 HDL INTERPRETATION: Undesirable: High Risk: Less than 40 MG/DL Desirable: Low Risk: Greater than 60 MG/DL 68 LDL INTERPRETATION: Low Risk Optimal Level: LDL Less than 100 MG/DL Near or Above Optimal: LDL 100-129 MG/DL Borderline High Risk: LDL 130-159 MG/DL High Risk: LDL 160-189 MG/DL Very High Risk: LDL Greater than 189 MG/DL 69 New Reference Range and Interpretation effective 05/16/2002 TnI (ng/ml) INTERPRETATION Less Than 0.06 ng/mL NOT SUPPORTIVE OF DIAGNOSIS OF [place] 0.06 - 0.50 ng/ml INDETERMINATE: SUGGEST SERIAL STUDIES IF CLINICALLY INDICATED. Greater than 0.5 ng/mL CONSISTENT WITH DIAGNOSIS OF [place] . 70 Recommended INR for Patients on Oral Anticoagulants Prophylaxis 2.0 - 3.0 Treatment of thrombosis 2.0 - 3.0 Prevention of embolism 2.0 - 3.0 Prevention of embolism from prosthetic heart valves 2.5 - 3.5 71 DIAGNOSIS,TREATMENT,AND THERAPY MUST BE BASED ON THE INR VALUE ALONE. 72 PLEASE NOTE NEW REFERENCE RANGE EFFECTIVE 09. 73 Anion gap measurement may be of limited value in the presence of any alkalosis, especially in a combined acid base disorder. . 74 Note change in reference range as of 04/02/08. The change was based on recommendations from the [place] [employer]. 75 Please note change in reference range effective 08 . 76 A metabolite of Naproxen, O-desmethylnaproxen, has been shown to interfere with the Jendrassik-Brandyn method for measuring total bilirubin. Samples from patients who have taken Naproxen have shown spurious elevation in total bilirubin levels. 77 Because ethnic data is not always readily available, this report includes an eGFR for both -Americans and non- Americans. The National Kidney Disease Education Program (NKDEP) does not endorse the use of the MDRD equation for patients that are not between the ages of 18 and 70, are , have extremes of body size, muscle mass, or nutritional status, or are non- or non-. According to the National Kidney Foundation, irrespective of diagnosis, the stage of the disease is based on the level of kidney function: Stage Description GFR(mL/min/1.73 m(2)) 1 Kidney damage with normal or decreased GFR 90 2 Kidney damage with mild decrease in GFR 60-89 3 Moderate decrease in GFR 30-59 4 Severe decrease in GFR 15-29 5 Kidney failure <15 (or dialysis) 78 CHOLESTEROL INTERPRETATION: Desirable: Less than 200 MG/DL Borderline-High Risk: 200-239 MG/DL High-Risk: 240 MG/DL and over 79 HDL INTERPRETATION: Undesirable: High Risk: Less than 40 MG/DL Desirable: Low Risk: Greater than 60 MG/DL 80 LDL INTERPRETATION: Low Risk Optimal Level: LDL Less than 100 MG/DL Near or Above Optimal: LDL 100-129 MG/DL Borderline High Risk: LDL 130-159 MG/DL High Risk: LDL 160-189 MG/DL Very High Risk: LDL Greater than 189 MG/DL 81 Anion gap measurement may be of limited value in the presence of any alkalosis, especially in a combined acid base disorder. . 82 Note change in reference range as of 04/02/08. The change was based on recommendations from the [place] [employer]. 83 Please note change in reference range effective 08 . 84 A metabolite of Naproxen, O-desmethylnaproxen, has been shown to interfere with the Jendrassik-[place] method for measuring total bilirubin. Samples from patients who have taken Naproxen have shown spurious elevation in total bilirubin levels. 85 Because ethnic data is not always readily available, this report includes an eGFR for both -Americans and non- Americans. The National Kidney Disease Education Program (NKDEP) does not endorse the use of the MDRD equation for patients that are not between the ages of 18 and 70, are , have extremes of body size, muscle mass, or nutritional status, or are non- or non-. According to the National Kidney Foundation, irrespective of diagnosis, the stage of the disease is based on the level of kidney function: Stage Description GFR(mL/min/1.73 m(2)) 1 Kidney damage with normal or decreased GFR 90 2 Kidney damage with mild decrease in GFR 60-89 3 Moderate decrease in GFR 30-59 4 Severe decrease in GFR 15-29 5 Kidney failure <15 (or dialysis) 86 CHOLESTEROL INTERPRETATION: Desirable: Less than 200 MG/DL Borderline-High Risk: 200-239 MG/DL High-Risk: 240 MG/DL and over 87 HDL INTERPRETATION: Undesirable: High Risk: Less than 40 MG/DL Desirable: Low Risk: Greater than 60 MG/DL 88 LDL INTERPRETATION: Low Risk Optimal Level: LDL Less than 100 MG/DL Near or Above Optimal: LDL 100-129 MG/DL Borderline High Risk: LDL 130-159 MG/DL High Risk: LDL 160-189 MG/DL Very High Risk: LDL Greater than 189 MG/DL 89 Anion gap measurement may be of limited value in the presence of any alkalosis, especially in a combined acid base disorder. . 90 Note change in reference range as of 04/02/08. The change was based on recommendations from the [place] [employer]. 91 Please note change in reference range effective 08 . 92 Because ethnic data is not always readily available, this report includes an eGFR for both -Americans and non- Americans. The National Kidney Disease Education Program (NKDEP) does not endorse the use of the MDRD equation for patients that are not between the ages of 18 and 70, are , have extremes of body size, muscle mass, or nutritional status, or are non- or non-. According to the National Kidney Foundation, irrespective of diagnosis, the stage of the disease is based on the level of kidney function: Stage Description GFR(mL/min/1.73 m(2)) 1 Kidney damage with normal or decreased GFR 90 2 Kidney damage with mild decrease in GFR 60-89 3 Moderate decrease in GFR 30-59 4 Severe decrease in GFR 15-29 5 Kidney failure <15 (or dialysis) 93 Anion gap measurement may be of limited value in the presence of any alkalosis, especially in a combined acid base disorder. . 94 Note change in reference range as of 04/02/08. The change was based on recommendations from the [place] [employer]. 95 Please note change in reference range effective 08 . 96 A metabolite of Naproxen, O-desmethylnaproxen, has been shown to interfere with the Jendrassik-Brandyn method for measuring total bilirubin. Samples from patients who have taken Naproxen have shown spurious elevation in total bilirubin levels. 97 Because ethnic data is not always readily available, this report includes an eGFR for both -Americans and non- Americans. The National Kidney Disease Education Program (NKDEP) does not endorse the use of the MDRD equation for patients that are not between the ages of 18 and 70, are , have extremes of body size, muscle mass, or nutritional status, or are non- or non-. According to the National Kidney Foundation, irrespective of diagnosis, the stage of the disease is based on the level of kidney function: Stage Description GFR(mL/min/1.73 m(2)) 1 Kidney damage with normal or decreased GFR 90 2 Kidney damage with mild decrease in GFR 60-89 3 Moderate decrease in GFR 30-59 4 Severe decrease in GFR 15-29 5 Kidney failure <15 (or dialysis) 98 CHOLESTEROL INTERPRETATION: Desirable: Less than 200 MG/DL Borderline-High Risk: 200-239 MG/DL High-Risk: 240 MG/DL and over 99 HDL INTERPRETATION: Undesirable: High Risk: Less than 40 MG/DL Desirable: Low Risk: Greater than 60 MG/DL 100 LDL INTERPRETATION: Low Risk Optimal Level: LDL Less than 100 MG/DL Near or Above Optimal: LDL 100-129 MG/DL Borderline High Risk: LDL 130-159 MG/DL High Risk: LDL 160-189 MG/DL Very High Risk: LDL Greater than 189 MG/DL Procedures Date CPT Code Description Status 07/13/2017 47419 EKG Tracing & Interpretation Completed 05/24/2017 92430 ECHO Transthoracic, Real-Time 2D With Doppler And Color Completed Flow 03/14/2017 66842 Inject Tendon Sheath Or Ligament Aponeurosis Eg Plantar Completed Fascia 03/14/2017 26342 Inject Tendon Sheath Or Ligament Aponeurosis Eg Plantar Completed Fascia 03/05/2017 60254 Echocardiogram, Limited Study Completed 03/05/2017 01093 ECHO Transthoracic, Real-Time 2D With Doppler And Color Completed Flow 03/05/2017 92277 Pace Maker Eval W/Iterative Adjment Dual Lead Completed 01/01/2017 11401 EKG Tracing & Interpretation Completed 12/28/2016 21011 Myocardial Perfusion Imaging Tomographic (Spect) Completed Multiple Studies 12/28/2016 17155 Stress Test Completed 12/07/2016 86518 ECHO Transthoracic, Real-Time 2D With Doppler And Color Completed Flow 11/16/2016 26920 EKG Tracing & Interpretation Completed 11/03/2016 43717 Pace Maker Eval W/Iterative Adjment Dual Lead Completed 06/06/2016 51464 EKG Tracing & Interpretation Completed 05/17/2016 14801 Inject Tendon Sheath Or Ligament Aponeurosis Eg Plantar Completed Fascia 05/17/2016 44700 Inject Tendon Sheath Or Ligament Aponeurosis Eg Plantar Completed Fascia 04/26/2016 84232 Pace Maker Eval W/Iterative Adjment Dual Lead Completed 10/28/2015 25784 Inject Tendon Sheath Or Ligament Aponeurosis Eg Plantar Completed Fascia 10/28/2015 19692 Inject/Drain Joint/Bursa Intermediate Completed 10/26/2015 04368 Interrogation Device Eval In Person W/DR Completed Analysis,Single,Dual,Mul 10/26/2015 19270 Interrogation Device Eval In Person W/DR Completed Analysis,Single,Dual,Mul 07/26/2015 49794 EKG, Interpretation Only Completed 05/12/2015 45793 Interrogation Device Eval In Person W/DR Completed Analysis,Single,Dual,Mul 04/26/2015 85061 Inject Tendon Sheath Or Ligament Aponeurosis Eg Plantar Completed Fascia 04/21/2015 51819 EKG Tracing & Interpretation Completed 10/28/2014 42327 Interrogation Device Eval In Person W/DR Completed Analysis,Single,Dual,Mul 10/13/2014 63011 EKG Tracing & Interpretation Completed 10/04/2014 31549 EKG, Interpretation Only Completed 10/04/2014 59085 Stress Test Supervsn W/Out I/R Completed 10/04/2014 38352 Treadmill Interp/Report Only Completed 10/01/2014 45694 ECHO Transthoracic, Real-Time 2D With Doppler And Color Completed Flow 09/10/2014 24744 EKG Tracing & Interpretation Completed 08/17/2014 03467 Pace Maker Eval W/Iterative Adjment Dual Lead Completed 05/19/2014 66108 Interrogation Device Eval In Person W/ Completed Analysis,Single,Dual,Mul 04/27/2014 41699 Pace Maker Eval W/Iterative Adjment Dual Lead Completed 04/23/2014 19469 Inject Tendon Sheath Or Ligament Aponeurosis Eg Plantar Completed Fascia 04/23/2014 90081 Inject Tendon Sheath Or Ligament Aponeurosis Eg Plantar Completed Fascia 04/23/2014 54681 Inject Tendon Sheath Or Ligament Aponeurosis Eg Plantar Completed Fascia 12/12/2013 77029 ECHO Transthoracic, Real-Time 2D With Doppler And Color Completed Flow 12/02/2013 28305 EKG Tracing & Interpretation Completed 11/13/2013 77903 Inject Tendon Sheath Or Ligament Aponeurosis Eg Plantar Completed Fascia 11/13/2013 16244 Inject Tendon Sheath Or Ligament Aponeurosis Eg Plantar Completed Fascia 11/06/2013 30823 Pace Maker Eval W/Iterative Adjment Dual Lead Completed 06/03/2013 99703 Trigger Finger Release Incision / Tendon Sheath Completed Incision 06/03/2013 40198 Trigger Finger Release Incision / Tendon Sheath Completed Incision 05/21/2013 34355 EKG, Interpretation Only Completed 04/02/2013 51097 Pace Maker Eval W/Iterative Adjment Dual Lead Completed 11/21/2012 42104 Inject Tendon Sheath Or Ligament Aponeurosis Eg Plantar Completed Fascia 11/06/2012 71051 EKG Tracing & Interpretation Completed 10/10/2012 86170 Interrogation Device Eval In Person W/DR Completed Analysis,Single,Dual,Mul 07/15/2012 59050 Removal With Replacement Dual Lead System Pulse Completed Generator 07/01/2012 31722 ECHO Transthoracic, Real-Time 2D With Doppler And Color Completed Flow 06/20/2012 29331 Interrogation Device Eval In Person W/DR Completed Analysis,Single,Dual,Mul 05/09/2012 93369 EKG Tracing & Interpretation Completed 04/04/2012 73547 Pace Maker Eval W/Iterative Adjment Dual Lead Completed 11/22/2011 77395 Treadmill Interp/Report Only Completed 11/22/2011 72324 Stress Test Supervsn W/Out I/R Completed 09/26/2011 73773 Pace Maker Eval W/Iterative Adjment Dual Lead Completed 04/12/2011 12043 EKG Tracing & Interpretation Completed 03/29/2011 46223 Interrogation Device Eval In Person W/DR Completed Analysis,Single,Dual,Mul 01/05/2011 67281 Interrogation Device Eval In Person W/DR Completed Analysis,Single,Dual,Mul 10/05/2010 08511 Pace Maker Eval W/Iterative Adjment Dual Lead Completed 04/07/2010 32699 Interrogation Device Eval In Person W/DR Completed Analysis,Single,Dual,Mul 02/16/2010 47695 EKG Tracing & Interpretation Completed 02/15/2010 02562 ECHO Transthorasic Realtime 2D W Doppler & Color Completed Flow Hosp 12/02/2009 60418 Pace Maker Eval W/Iterative Adjment Dual Lead Completed 07/02/2009 69129 EKG Tracing & Interpretation Completed 06/03/2009 41853 Pace Maker Eval W/Iterative Adjment Dual Lead Completed 12/03/2008 85876 Interrogation Device Eval In Person W/DR Completed Analysis,Single,Dual,Mul 07/01/2008 98434 EKG Tracing & Interpretation Completed 07/01/2008 53199 EKG Tracing & Interpretation Completed 06/11/2008 71799 Reprogram Pacemaker (Dual) Completed 06/11/2008 32136 Reprogram Pacemaker (Dual) Completed 06/11/2008 30525 Reprogram Pacemaker (Dual) Completed 12/05/2007 19099 Reprogram Pacemaker (Dual) Completed 11/22/2007 05994 EKG Tracing & Interpretation Completed 11/22/2007 54598 EKG Tracing & Interpretation Completed 09/29/2007 42929 Treadmill Interp/Report Only Completed 09/29/2007 56989 Stress Test Supervsn W/Out I/R Completed 09/29/2007 35181 Stress Test Supervsn W/Out I/R Completed 09/26/2007 31004 Pacemaker Check- Teletrace Dual Completed 09/26/2007 46377 Pacemaker Check- Teletrace Dual Completed 08/01/2007 30199 Pacemaker Check- Teletrace Dual Completed 06/06/2007 68715 Reprogram Pacemaker (Dual) Completed 06/06/2007 02263 Reprogram Pacemaker (Dual) Completed 06/06/2007 52278 Reprogram Pacemaker (Dual) Completed 06/06/2007 16781 Reprogram Pacemaker (Dual) Completed 05/27/2007 39636 EKG Tracing & Interpretation Completed 05/27/2007 88899 EKG Tracing & Interpretation Completed 05/27/2007 76919 Reprogram Pacemaker (Dual) Completed 05/27/2007 26296 Reprogram Pacemaker (Dual) Completed 05/15/2007 88319 EKG Tracing & Interpretation Completed 04/11/2007 57324 Pacemaker Check- Teletrace Dual Completed 03/20/2007 36417 EKG Tracing & Interpretation Completed 02/14/2007 18131 Pacemaker Check- Teletrace Dual Completed 12/20/2006 15916 Pacemaker Check- Teletrace Dual Completed 12/07/2006 65512 Reprogram Pacemaker (Dual) Completed 10/25/2006 95967 Pacemaker Check- Teletrace Dual Completed 08/30/2006 23164 Pacemaker Check- Teletrace Dual Completed 08/22/2006 34970 Color Doppler Completed 08/22/2006 07916 Color Doppler Completed 08/22/2006 45449 Pulse Doppler & Continuous Wave Completed 08/22/2006 13535 Echocardiogram Completed 08/22/2006 23808 Echocardiogram Completed 08/02/2006 93322 EKG Tracing & Interpretation Completed 08/02/2006 35763 EKG Tracing & Interpretation Completed 06/08/2006 44061 Pacemaker Check/Dual Blaze/Office Completed 11/10/2005 92154 Reprogram Pacemaker (Dual) Completed 11/10/2005 43800 Reprogram Pacemaker (Dual) Completed 11/09/2005 32084 EKG Tracing & Interpretation Completed 11/09/2005 06444 EKG Tracing & Interpretation Completed 09/11/2005 92848 Pacemaker Check- Teletrace Dual Completed 06/27/2005 51040 Pacemaker Check/Dual Blaze/Office Completed 04/04/2005 00307 Color Doppler Completed 04/04/2005 30934 Pulse Doppler & Continuous Wave Completed 04/04/2005 54801 Echocardiogram Completed 02/21/2005 00853 Pacemaker Check/Sing Blaze/Office Completed 01/24/2005 35075 Pacemaker Check/Sing Blaze/Office Completed 12/27/2004 40431 Pacemaker Check/Sing Blaze/Office Completed 11/03/2004 39293 Color Doppler Completed 11/03/2004 66664 Pulse Doppler & Continuous Wave Completed 11/03/2004 81747 Echocardiogram Completed 10/26/2004 43887 EKG Tracing & Interpretation Completed 10/18/2004 15761 Pacemaker Check/Sing Blaze/Office Completed 09/08/2004 00342 Pacemaker Check/Sing Blaze/Office Completed 05/03/2004 10053 Pacemaker Check/Sing Blaze/Office Completed 01/26/2004 25403 Pacemaker Check/Sing Blaze/Office Completed 11/03/2003 49660 Pacemaker Check/Sing Blaze/Office Completed 10/20/2003 32999 Holter Monitor Interpretation Completed 10/12/2003 85022 EKG Tracing & Interpretation Completed 07/29/2003 77842 ECHO/Stress Completed 07/29/2003 56388 Stress Test Completed 07/17/2003 72692 Pacemaker Check/Sing Blaze/Office Completed 07/13/2003 81317 EKG Tracing & Interpretation Completed 06/23/2003 46307 Echocardiogram Completed 06/23/2003 78336 Pulse Doppler & Continuous Wave Completed 06/23/2003 00147 Color Doppler Completed 06/22/2003 38034 EKG Tracing & Interpretation Completed 05/14/2003 10151 Pacemaker Check/Sing Blaze/Office Completed 05/01/2003 14067 ECHO/Stress Completed 05/01/2003 66512 Stress Test Completed 03/17/2003 23031 Transesophageal Echocardiogram Completed 03/05/2003 31579 Pacemaker Check/Sing Blaze/Office Completed 12/25/2002 33721 EKG Tracing & Interpretation Completed 12/04/2002 52417 Pacemaker Check/Sing Blaze/Office Completed Encounters Type Date Location Provider CPT E/M Dx Office Visit 07/13/2017 1:40p [facility] Ab Chakraborty, 69468 I42.9 M.DJohana I10 R42 Z95.2 E78.5 Z95.0 Office Visit 06/19/2017 10:00a [facility] ALMITA Oliveira 31870 I42.9 Z95.0 I10 R42 Z95.2 Office Visit 04/25/2017 11:30a [facility] ALMITA Oliveira 18772 I42.9 Z95.0 Z95.2 I10 E78.5 Office Visit 02/01/2017 3:30p [facility] ALMITA Oliveira 26070 I42.9 Z95.2 I10 I48.0 Z95.0 R06.02 Office Visit 01/01/2017 2:00p [facility] ALMITA Oliveira 23284 I42.9 Z95.2 I10 I48.0 R06.02 Office Visit 11/16/2016 1:40p [facility] Ab Chakraborty M.D. 78266 I49.5 Z95.0 Z95.2 I10 R06.00 Office Visit 08/02/2016 10:00a [facility] ALMITA Oliveira 15940 Z95.2 I48.0 I10 Office Visit 07/12/2016 11:30a [facility] ALMITA Oliveira 46492 Z95.2 I48.0 I10 R06.02 Office Visit 06/06/2016 10:40a [facility] Ab Chakraborty M.D. 66579 I10 R94.31 I48.0 Z95.2 Office Visit 07/28/2015 2:40p [facility], Lul Castañ[place] [address] R07.2 Hospitalists Z95.2 I10 A41.9 Office Visit 07/27/2015 2:40p [facility], Raul Patel, 89324 R07.2 Hospitalists M.DJohana Z95.2 I10 Office Visit 07/26/2015 2:39p [facility] Ang Caputo , 94098 A41.9 Assoc, Hospitalists MAliya R07.2 Z95.2 I10 Office Visit 04/21/2015 10:00a [facility] Ab Chakraborty, 68171 427.81 M.D. 401.9 424.1 424.0 Office Visit 10/13/2014 11:30a [facility] ALMITA Oliveira 62872 272.4 401.9 424.1 424.0 V45.01 427.31 Office Visit 10/04/2014 [facility] Wil [facility]quez, 57847 786.50 Hospitalists M.DJohana 272.4 401.9 Office Visit 10/03/2014 7:56a [facility], 41812 786.50 Assoc, Hospitalists N.P. 272.4 401.9 Office Visit 09/10/2014 11:00a [facility] Ab Chakraborty, 20540 427.81 M.D. 424.1 424.0 401.9 427.31 Office Visit 04/23/2014 10:45a [facility] Radha Navarro 27753 727.03 Of Jairon Huggins Office Visit 12/04/2013 9:30a [facility] Radha Navarro 15775 354.0 Of Jairon Huggins 727.03 Office Visit 12/02/2013 2:00p [facility] Ab Chakraborty M.D. 85641 354.0 427.81 V45.01 424.0 424.1 Office Visit 11/13/2013 10:15a [facility] Radha Navarro 86275 354.0 Jairon Huggins 727.03 Office Visit 04/24/2013 8:45a [facility] Radha Navarro 17527 727.03 Of Jairon Huggins Office Visit 11/21/2012 10:30a [facility] Radha Navarro, 42730 727.03 Of Jairon Huggins Office Visit 11/06/2012 10:40a [facility] Ab Chakraborty, 83436 424.0 M.D. 427.81 V45.01 401.1 Office Visit 07/22/2012 2:45p [facility] Dilcia Pedraza, 41212 427.81 [employer] [facility] M.D. Office Visit 07/03/2012 1:30p [facility] Dilcia Pedraza, 40536 427.89 [facility] M.D. Office Visit 05/23/2012 11:00a [facility] Obdulia Chiu, 58244 401.1 N.P. Office Visit 05/09/2012 1:40p [facility] Ab Chakraborty 70992 401.1 M.DJohana 427.81 425.9 Office Visit 04/12/2011 9:20a [facility] Ab Chakraborty M.D. 58221 425.9 427.81 V43.3 427.0 Office Visit 02/16/2010 1:20p [facility] Ab Chakraborty M.D. 00499 425.9 V43.3 V45.01 427.81 427.0 Office Visit 07/02/2009 9:20a [facility] Ab Chakraborty 60224 V45.01 M.D. 427.81 427.0 401.1 Office Visit 09/01/2008 2:40p [facility] Ab Chakraborty M.D. 75008 401.1 V45.01 427.81 427.0 Office Visit 07/08/2008 11:00a [facility] Nurse Visit 83144 401.0 Office Visit 07/01/2008 8:10a [facility] Ab Chakraborty 45218 427.81 M.D. 427.0 401.0 Office Visit 11/22/2007 2:00p [facility] Ab Chakraborty 47565 786.50 M.D. 427.81 401.1 427.0 Office Visit 05/29/2007 3:40p [facility] Ab Chakraborty, 83832 427.81 M.D. 401.1 V43.3 427.0 Office Visit 05/27/2007 11:00a [facility] Ab Chakraborty, 60941 427.81 M.D. V43.3 401.1 Office Visit 05/15/2007 10:20a [facility] Ab Chakraborty, 25531 427.81 M.D. V43.3 401.1 278.01 V45.01 Office Visit 03/20/2007 9:00a [facility] Ab Chakraborty 82957 427.81 M.D. 427.0 V43.3 401.1 278.01 Office Visit 08/02/2006 1:40p [facility] Ab Chakraborty M.D. 84429 401.1 V43.3 Office Visit 11/09/2005 9:40a [facility] Ab Chakraborty M.D. 36093 401.0 427.81 V43.3 278.01 Office Visit 10/26/2004 8:40a [facility] Ab Chakraborty M.D. 15544 427.0 424.1 424.0 401.0 Office Visit 10/12/2003 9:00a [facility] Ab Chakraborty M.D. 95731 785.1 V43.3 Office Visit 07/13/2003 10:40a [facility] Ab Chakraborty M.D. 01173 396.3 424.1 427.81 Office Visit 06/22/2003 10:00a [facility] Ab Chakraborty M.D. 30782 427.1 424.0 427.81 Office Visit 06/10/2003 1:20p [facility] Ab Chakraborty 53313 427.81 M.D. 429.3 424.0 Office Visit 03/23/2003 1:20p [facility] Ab Chakraborty M.D. 06838 429.3 V45.01 Office Visit 03/12/2003 11:00a [facility] Ab Chakraborty M.D. 93181 429.3 436 Office Visit 12/25/2002 10:00a [facility] Ab Chakraborty M.D. 40752 429.3 Plan of Care Future Appointment(s):10/19/2017 1:20 pm - Ab Chakraborty M.D. at [facility]09/26/2017 11:00 am - Ica ECHO Schedule at [facility] 11:30 am - Pacemaker Schedule at [facility]08/31/2017 - MIKE Oliveira Essential (primary) hypertensionFollow up:IDRIS Chakraborty 2months - Change 2/2 appt until thenZ95.2 Presence of prosthetic heart eplgyK23.9 Cardiomyopathy, unspecifiedNew Orders:Echocardiogram, Limited StudyComments: Continue to check weights daily and if you notice increased leg swelling or 3lb weight gain, please notify us.R07.9 Chest pain, [id number] Chronic kidney disease, unspecified
[2017-09-03 13:30] VITALS: BP 141/64
--- NOTE | 2017-09-03 13:34 | UC ---
Hand/Wrist HPI - HPI Summary HPI Summary: Pt presents with right hand redness and pain s/p fall 3 days ago. She tells me that 3 days ago she slipped on the ice and landed on her right side - she scraped her right hand across the ice during the fall. Did not hit her head. Not much pain at the time, but yesterday the dorsal aspect of her right hand began to become red, swollen, and painful. Denies fever, chills, SOB, chest pain , abdominal pain, n/v/d/c, numbness, or tingling. 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 Verified 09/03/17 13:32 Breathing/I tching Sulfa Drugs Allergy Intermediate GI Upset Verified 09/03/17 13:32 Triamcinolone [From Nasacort] Allergy Unknown Unknown Verified 09/03/17 13:32 Reaction Details Nitrofurantoin AdvReac Intermediate GI Upset Verified 09/03/17 13:32 SURGICAL TAPE Allergy Mild Rash Uncoded 05/26/17 08:22 Home Medications: Home Medications Torsemide 20 mg PO SEE INSTRUCTIONS 09/03/17 [History Confirmed 09/03/17] PMH/Surg Hx/FS Hx/Imm Hx Cardiovascular History: Cardiac Disease, Other Other Cardiovascular History: Valve Replacement Psychological History: Anxiety, Depression Other History Of: Anticoagulant Therapy - daily coumadin - Surgical History Surgical History: Yes Surgery Procedure, Year, and Place: choley 2009. 2012 [facility] [place]. 2003 [facility] valve replacement [facility]. shoulder surgery 1997. tubal 1975. L breast surgery with lymph node removal L. lumpectomy. 1974 L-4- 5. diskectomy 1974. appy 196. bilat hands trigger fingers - Family History Known Family History: Positive: Cardiac Disease, Hypertension, Diabetes - nephew - fatal dm at 65 y/o - Social History Occupation: Retired Alcohol Use: None Substance Use Type: None Smoking Status (MU): Never Smoked Tobacco - Immunization History Most Recent Influenza Vaccination: fall 2016 Most Recent Tetanus Shot: Unknown Most Recent Pneumonia Vaccination: fall 2015 Review of Systems Constitutional: Negative Skin: Other - Redness right hand Respiratory: Negative Cardiovascular: Negative Neurovascular: Negative Musculoskeletal: Edema - Right hand, Other: - Right hand pain Neurological: Negative Psychological: Negative All Other Systems Reviewed And Are Negative: Yes Physical Exam Triage Information Reviewed: Yes Appearance: Well-Appearing, No Pain Distress, Well-Nourished Vital Signs: Initial Vital Signs Temp 97.8 F 09/03/17 13:26 Pulse 69 09/03/17 13:26 Resp 16 09/03/17 13:26 BP 141/64 09/03/17 13:26 Pulse Ox 100 09/03/17 13:26 Vital Signs Reviewed: Yes Neck: Positive: Supple, No Lymphadenopathy Respiratory: Positive: Lungs clear, Normal breath sounds, No respiratory distress Cardiovascular: Positive: Pulses Normal, Brisk Capillary Refill Musculoskeletal: Positive: Strength Limited @ - Right hand due to pain, ROM Limited @ - Right hand due to pain, Edema @ - Right hand overlying the dorsal aspect of 2nd, 3rd, and 4th MCPs., Other: - Unable to make a fist without significant pain. TTP over the dorsal aspect of 2nd, 3rd, and 4th MCPs. Neurological: Positive: Alert, Other: - Sensations intact right hand and all fingers Psychological: Positive: Age Appropriate Behavior Skin: Positive: Other - Moderate erythema right hand overlying the dorsal aspect of 2nd, 3rd, and 4th MCPs. 1-2mm scant abrasions on this surface. Mild warmth. Does not extend into the fingers or below the wrist. No drainage, dischage, bleeding, or streaking. The area margins were marked with a pen Hand/Wrist Course/Dx - Course Course Of Treatment: Right hand XR: 1. OSTEOPENIA. 2. OSTEOARTHRITIS. 3. NO ACUTE OSSEOUS INJURY. THE DEGREE OF OSTEOPENIA MAY MAKE A NONDISPLACED FRACTURE RADIOGRAPHICALLY OCCULT. IF SYMPTOMS PERSIST, RECOMMEND REPEAT IMAGING. Strongly suspect this is cellulitis due to recent abrasion and trauma. The area margins were marked with a pen and pt was advised to return if the redness expands outside of this area. Clindamycin for 10 days - Differential Dx/Diagnosis Provider Diagnoses: Right hand cellulitis Discharge - Discharge Plan Condition: Stable Disposition: HOME Prescriptions: Clindamycin Cap(NF) [Clindamycin Cap 300 mg Cap(NF)] 300 mg PO TID #30 cap Patient Education Materials: Cellulitis (DC) Referrals: Casper Pace MD [Primary Care Provider] - Additional Instructions: If you develop a fever, shortness of breath, chest pain, new or worsening symptoms - please call your PCP or go to the ED. Images Hands: 1 - Area of erythema and edema
--- NOTE | 2017-09-03 13:48 | RAD ---
HISTORY: Fall, head injury COMPARISONS: None VIEWS: 4, Frontal, lateral, and oblique views of the right hand FINDINGS: BONE DENSITY: There is diffuse osteopenia. BONES: There is no displaced fracture. JOINTS: There is osteoarthritis of the first CMC joint and of the interphalangeal joints. ALIGNMENT: There is no dislocation. SOFT TISSUES: Unremarkable. OTHER FINDINGS: None. IMPRESSION: 1. OSTEOPENIA. 2. OSTEOARTHRITIS. 3. NO ACUTE OSSEOUS INJURY. THE DEGREE OF OSTEOPENIA MAY MAKE A NONDISPLACED FRACTURE RADIOGRAPHICALLY OCCULT. IF SYMPTOMS PERSIST, RECOMMEND REPEAT IMAGING.
== END 2017-09-03 14:10 | disposition home or self-care (01) ==
LOC: UCEAST 13:17
DX: L03.113 Cellulitis of right upper limb (principal); Z79.01 Long term (current) use of anticoagulants; Z95.2 Presence of prosthetic heart valve
CPT/HCPCS: 99212; G0463

== ENCOUNTER 2017-10-21 10:07 | Emergency (ER) | payer MEDICARE ==
[2017-10-21] MEDS ORDERED: NS 0.9% 1000 ML* 1,000 ML IV ONE (10:14)
--- OUTSIDE RECORDS SUMMARY | 2017-10-21 10:19 | XMS REPORT ---
:1940 External Reference #:[id number] Author Organization [facility] Address [address] [address] Phone [phone] Care Team Providers Name Role Phone Casper Pace MD Primary Care Physician Unavailable Payers Type Date Identification Numbers Payment Provider Subscriber Medicare Primary Effective: Policy Number: Medicare Wojciech Bowens 2003 [id number] PayID: [id number] [address] [place] [address] [facility] Part B Policy Number: [id number] [facility] Wojciech Bowens PayID: [id number] [address] [place] [address] Problems Date Description Provider Status Onset: 05/22/2003 [...] Marital Status Lives With Daughter 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 Oxide -MG 2017 s Favian, Supplement N.P. Metoprolol 07/30/ Active Tablets ER 25mg 180ta 2 by mouth Ab Succinate ER 2016 24HR bs every day Edin Chakraborty M.D. Aldactone 07/13/ Active Tablets 25mg 90tab 1 by mouth Ab 2016 s every day Edin Chakraborty M.D. Crestor 03/29/ Active Tablets 5mg 30tab 1 by mouth Ab 2016 s every night Edin Chakraborty at bedtime M.Dilcia hold as of 3.9.18 Blood Pressure 12/28/ Active Kit 1 cuff Ab Monitor 2017 Edin Chakraborty Automatic With M.DJohana Large Cuff Torsemide 12/13/ Active Tablets 10mg 30tab 1 tab po Ab 2016 s every Edin Chakraborty, Sunday and Bhavna Sunday Diltiazem CD 07/12/ Active Caps ER 300mg 30cap 1 tablet I48.0 Ab 2016 24HR s daily hold perez Hernandes of Bhavna 3.9.18 Pantoprazole 05/09/ Active Tablets DR 40mg 90tab 1 po once Ab Sodium 2011 s daily Edin Chakraborty M.D. Effexor XR 03/20/ Active Tablets 150mg 1 po bid Ab 2006 Edin Chakraborty M.D. Claritin 11/08/ Active Tablets 10mg 1 po qd Ab 2005 Edin Chakraborty M.D. Tylenol 03/22/ Active Tablets 500mg 2 po prn Ab 2002 Edin Chakraborty M.D. Coumadin / Active Tablets 2.5mg 2.5 mg on Unknown 0000 Tue/Sunday and 5 mg all other mon, wed, thur, sat, sun as directed ( adjustment [facility] [place]) Clindamycin / Active Capsules 150mg 4 caps 1 Unknown HCL 0000 hour prior to dental work Singulair / Active Chewtabs 10mg 1 tab at Unknown 0000 night Calcium 600 + / Active Tablets 600-400mg 1 po qd Unknown D 0000 Femara / Active Tablets 2.5mg 1 po qd at Unknown 0000 bedtime Ramsay / Active 1000mg 1 po qd Unknown 0000 Acidophilus / Active Capsules 300mg 1 by mouth Unknown 0000 every day Prednisone 00/ Active Tablets 20mg 1 po qd Unknown 0000 Losartan 07/17/ Hx Tablets 25mg 90tab 1 by mouth Ab Potassium 2016 - s every day Edin Chakraborty, M.DJohana 2017 Prednisone 05/23/ Hx Tablets 20mg take 1 [place], 2017 - tablet by Casper 06/18/ mouth once 2016 daily ( took for 21 days finished ) Losartan 11/03/ Hx Tablets 50mg 30tab 1/2 tab by Ab Dow 2016 - s mouth every Edin Chakraborty, 07/17/ morning M.D. 2017 Toprol XL 09/10/ Hx Tablets ER 25mg 180ta 1 by mouth Ab 2015 - 24HR bs every day Edin Chakraborty, 11/02/ M.D. 2017 Klor-Con M20 01/26/ Hx Tablets ER 20Meq 90tab 1 by mouth Ab 2013 - s every day Edin Chakraborty, M.DJohana 2017 Atorvastatin 01/23/ Hx Tablets 20mg 90tab Ab Calcium 2013 - s Edin Chakraborty, M.DJohana 2016 [place] 05/21/ Hx Tablets 5-325mg 40tab 1-2 po q4h Radha 2012 - s prn pain Navarro, 12/02/ M.D. 2014 Losartan 09/02/ Hx Tablets 25mg 180ta 1 by mouth Ab Potassium 2012 - bs twice a day Robert. Palmer, M.D. 2016 Potassium 06/04/ Hx Tablets ER 20Meq 90tab 1 by mouth Ab Chloride ER 2011 - s every day F. Joellenuser, M.D. 2013 Cardizem CD 05/23/ Hx Caps ER 240mg 90cap 1 by mouth I48.0 Ab 2011 - 24HR s every day Robert. Joellenuser, M.D. 2016 Macrobid 05/22/ Hx Capsules 100mg 14cap 1 tab bid x Unknown 2011 - s 7 days 2012 Cardizem CD 05/09/ Hx Caps ER 120mg 60cap 2 po qd Ab 2011 - 24HR s Edin Chakraborty, M.D. 2011 Diovan 05/10/ Hx Tablets 40mg 180ta 2 tabs by Ab 2009 - bs mouth once Edin Riosr, 09/02/ daily M.D. 2012 Diovan 04/14/ Hx Tablets 80mg 30tab 1 po qd Ab 2009 - s F. Joellenusehi, M.D. 2009 Cardizem CD 03/16/ Hx Caps ER 120mg 30cap 1 po qd Ab 2009 - 24HR s Edin Chakraborty, M.D. 2012 Potassium 02/16/ Hx Tablets ER 10Meq 90tab 1 tablet po Ab Chloride 2009 - s qd F. Mauser, M.D. 2011 Zocor 09/24/ Hx Tablets 10mg 90tab 1 po hs Ab 2009 - s F. Mauser, M.D. 2011 Zocor 09/20/ Hx Tablets 20mg 90tab 1 po qhs Ab 2009 - s F. Joellenuser, M.D. 2009 Zocor 07/05/ Hx Tablets 10mg 30tab 2 po hs Ab 2008 - s F. Joellenusehi, M.D. 2009 K-Tabs 07/05/ Hx Tablets ER 10Meq 90tab 2 tablets Ab 2008 - s po qd x2 Edin Chakraborty, M.D. 2009 1 tablet po qd Avapro 07/08/ Hx Tablets 150mg 90tab 1 PO PO Ab 2007 - shawn Chakraborty, M.D. 2008 Avapro 07/08/ Hx Tablets 150mg 90tab 1 po qd Ab 2007 - shawn Chakraborty, M.D. 2009 Vagifem 07/01/ Hx Tablets 25mcg 2 times a Ab 2007 - jonathan Chakraborty, M.D. 2008 Cardizem CD 07/01/ Hx Caps ER 240mg 90cap 1 po qd Ab 2007 - 24HR shawn Chakraborty, .D. 2009 Avapro 07/01/ Hx Tablets 75mg 90tab 1 po qam Ab 2007 - shawn Chakraborty, .D. 2007 Cardizem CD 06/26/ Hx Caps ER [...] Capsules 75mg 1 po qd Ab 2005 Diya Chakraborty, M.D. 2007 Macrobid 08/02/ Hx Capsules 100mg PO bid prn Ab 2005 - ROCIO Chakraborty, M.D. 2009 Norvasc 11/28/ Hx Tablets 5mg 1 po bid Ab 2005 - Edin Chakraborty, 08/02/ M.D. 2005 Norvasc 11/09/ Hx Tablets 5mg 30tab 1 po qd Ab 2005 - shawn Chakraborty, M.D. 2005 Effexor XR 11/08/ Hx Capsules 37.5mg 1 po qd Ab 2005 - Edin Chakraborty, 08/02/ M.D. 2006 Cipro 11/08/ Hx Tablets 750 one half po Unknown 2005 - bid 2005 Coumadin 02/21/ Hx Tablets 5mg 1/2 tablet Ab 2004 - Edin villalobos, 03/26/ sun,alla M.Dilcia 2014 and then 1 tablet heri sexton,riana,shawn avery as directed adjusted by [facility] [place] Lisinopril 11/03/ Hx Tablets 10mg 30tab 1 po qd Ab 2004 - shawn Chakraborty, 08/02/ M.D. 2005 Lisinopril 10/26/ Hx Tablets 2.5mg 60tab 2 po qd Ab 2004 - shawn Chakraborty, 11/03/ M.D. 2004 Effexor 10/25/ Hx Tablets 112.5mg 1 po qd Ab 2004 - Edin Chakraborty, 11/09/ M.D. 2005 Aspirin 11/01/ Hx Chewtabs 81mg [...] 100mg 1 po qd Ab Sodium 2002 Diya Chakraborty, .D. 2004 Lisinopril 06/22/ Hx Tablets 2.5mg 30tab 1 po qd Ab 2002 - s Edin Chakraborty, .D. 2004 Coumadin 06/10/ Hx Tablets 4mg 100ta use as Ab 2002 - bs directed Edin Chakraborty, M.D. 2004 dr chung following coumadin cheratussin ac 06/09/ Hx 2tsp q 6 hrs Ab 2002 - Edin Chakraborty, .D. 2002 cefuroxime 06/09/ Hx 500mg one bid Ab 2002 - Edin Chakraborty, .D. 2002 hydroco/apap 06/09/ Hx 5/325 one to two Ab 2002 - q 4 hrs Edin Chakraborty, .D. 2002 Aggrenox 05/13/ Hx Capsules 25mg;200 90cap 1 po bid Ab 2002 - mg s Edin Chakraborty, .D. 2002 Aspirin 03/22/ Hx Tablets 81mg qd [facility] Enteric Coated 2002 - Edin Chakraborty, M.D. 2002 Tums 03/12/ Hx Chewtabs PT Unsure 2 qd Ab 2002 - Dose Edin Chakraborty, M.D. 2014 Effexor XR 12/25/ Hx Capsules 150mg 30cap one qd Ab 2002 - s Edin Chakraborty, M.D. 2004 Azmacort Mdi 12/25/ Hx Inhaler 1unit 2puffs bid Ab 2002 - s Edin Chakraborty, M.D. 2004 Zestril 12/25/ Hx Tablets 10mg 30tab one qd Ab 2002 - s Edin Chakraborty, .D. 2002 Singulair 15/ Hx Tablets 10mg 30tab One qd At Ab 2002 - s hs Edin Chakraborty, M.D. 2015 Clarinex 12/25/ Hx Tablets 5mg 100ta qpm Ab 2002 - bs Edin Chakraborty, M.D. 2006 Aspirin 12/25/ Hx 80 q d Ab Chakraborty, 03/23/ Bhavna 2002 Macrodantin / Hx Capsules 100mg 30cap 1 po qd Unknown 0000 - s 2005 Premarin // Hx Cream 0.625mg/GM 4unit Twice Unknown Vaginal 0000 - s Weekly 2006 Macrodantin / Hx Capsules 50mg 1 po qd prn Unknown 0000 - bladder 2011 Premarin / Hx Cream 0.625mg/GM 42.5G prn Unknown 0000 - 2013 Evening / Hx Capsules 500mg 2 po qd Unknown Ramsay Oil 0000 - 2015 Tums E-X 750 [...] Technetium TC Administered Injection Gonzalo Ha 99M 017 Bhavna Pedraza Tetrofosmin, Per Unit Dose Up To 40 Millicuries Depomedrol Administered Injection Radha 40MG Melani Navarro M.D. Depomedrol Administered Injection Radha 40MG Melani Navarro M.D. Depomedrol Administered Injection Radha 40MG 016 Bhavna Navarro Depomedrol Administered Injection Radha 80MG 015 Bhavna Navarro Depomedrol Administered Injection Radha 80MG 014 Bhavna Navarro Depomedrol Administered Injection Radha 80MG 014 Bhavna Navarro Depomedrol Administered Injection Radha 80MG Shelia Navarro M.D. Vital Signs Date Vital Result Comment 10/19/2017 Height 61 inches 5'1" Weight 143.75 lb Heart Rate 70 /min BP Systolic Sitting 148 mmHg Ra, reg cuff BP Diastolic Sitting 78 mmHg Ra, reg cuff BMI (Body Mass Index) 27.2 kg/m2 Ejection Fraction 45%-50% echo 05/24/17 08/31/2017 Height 61 inches 5'1" Weight 146.00 [...] Egfr 40.9 >60 4 Lipid Panel - [facility] 04/27/2017 Creatine Kinase(CK) 81 U/L 10-223 [...] Cholesterol 79 mg/dL 10 Lipid Panel - [facility] 03/26/2017 Creatine Kinase(CK) 97 U/L 10-223 11 Lipid Profile (Trig/Chol/HDL) 03/26/2017 Triglycerides 89 mg/dL 12 Cholesterol 240 mg/dL 13 HDL Cholesterol 71.9 mg/dL 14 LDL Cholesterol 150 mg/dL 15 Comp Metabolic Panel 03/26/2017 Sodium 141 mmol/L [...] Egfr Non- 28.2 >60 Egfr 36.2 >60 16 Laboratory test finding 02/12/2017 Magnesium 1.9 mg/dL 1.9-2.7 Basic Metabolic Panel 02/12/2017 Sodium 139 mmol/L 133-145 Potassium 4.3 mmol/L 3.5-5.0 Chloride 105 mmol/L 101-111 Co2 Carbon Dioxide 24 mmol/L 22-32 Anion Gap 10 mmol/L 2-11 Glucose 89 mg/dL 70-100 Blood Urea Nitrogen 36 mg/dL High 6-24 Creatinine 1.66 mg/dL High 0.51-0.95 BUN/Creatinine Ratio 21.7 High 8-20 Calcium 9.5 mg/dL 8.6-10.3 Egfr Non- 30.1 >60 Egfr 38.7 >60 17 Laboratory test finding 02/12/2017 B-Type Natriuretic 285 pg/mL High 18 Peptide BNP Basic Metabolic Panel 01/11/2017 Sodium 139 mmol/L [...] pg/mL High 20 Magnesium 2.0 mg/dL 1.9-2.7 Laboratory test finding 06/05/2016 Magnesium 2.0 mg/dL 1.9-2.7 CBC Auto Diff 06/05/2016 White Blood Count [...] 0-2 Nucleated Red Blood Cells % 0 Lipid Profile (Trig/Chol/HDL) 06/05/2016 Triglycerides 97 mg/dL 21 Cholesterol 215 mg/dL 22 HDL Cholesterol 57.4 mg/dL 23 LDL Cholesterol 138 mg/dL 24 Comp Metabolic Panel 06/05/2016 Sodium 140 mmol/L [...] Egfr Non- 34.4 >60 Egfr 44.2 >60 25 Lipid Panel - [facility] 06/05/2016 Creatine Kinase(CK) 63 U/L 10-223 Basic Metabolic Panel 08/27/2014 Sodium 141 mmol/L [...] Horm) 1.41 IU/mL 0.34-5.60 Lipid Panel - [facility] 04/06/2014 Creatine Kinase 72 U/L 10-223 [...] 104 mg/dL 27, 33 Lipid Panel - [facility] 01/08/2014 Creatine Kinase 87 U/L 10-223 [...] (Creatine Kinase) 106 U/L 0-170 49 Lipid Profile (Trig/Chol/HDL) 12/12/2010 Triglyceride 165 mg/dL 40-200 Cholesterol 191 mg/dL Less Than 200 56 High Density Lipoprotein 52 mg/dL 40-60 57 Cholesterol/HDL Ratio 3.67 AVERAGE 1-4.44 Low Density Lipoprotein 106 mg/dL High Less Than 100 58 Lipid Panel - [facility] 12/12/2010 CPK (Creatine Kinase) 82 U/L 0-170 Comp Metabolic Panel 12/12/2010 Sodium 140 mmol/L 135-145 Potassium 4.0 mmol/L 3.5-5.0 Chloride 109 mmol/L 101-111 Co2 (Carbon Dioxide) 25.0 mmol/L 22-32 Anion Gap 6.0 mmol/L 2-11 59 Glucose 107 mg/dL High 70-100 BUN 19 mg/dL 6-24 Creatinine 1.10 mg/dL 0.50-1.40 One Over Creatinine 0.90 BUN/Creatinine Ratio 17.3 8-20 Calcium 9.3 mg/dL 8.1-9.9 Total Protein 6.1 GM/DL Low 6.2-8.1 Albumin 4.1 GM/DL 3.2-5.2 Globulin 2.0 GM/DL 2-4 Albumin/Globulin Ratio 2.1 1-3 Bilirubin Total 0.7 mg/dL 0.4-1.5 60 Alkaline Phosphatase 100 U/L 30-110 Alt (SGPT) 16 U/L 14-54 Ast (Sgot) 22 U/L 12-42 eGFR Non- 49.2 > 60 eGFR 63.3 > 60 61 Lipid Panel - [facility] 05/11/2010 CPK (Creatine Kinase) 85 U/L [...] 55.0 High 25.15-38.53 72 Lipid Panel - [facility] 11/05/2009 CPK (Creatine 109 U/L 0-170 [...] Less Than 100 80 Lipid Panel - [facility] 09/04/2009 CPK (Creatine Kinase) 105 U/L [...] mg/dL 11 fasting in 2 months 12 Desirable <150 Borderline high 150-199 High 200-499 Very High >500 13 Desirable <200 Borderline high 200-239 High >239 14 Low <40 Desirable: 40-60 High: >60 15 Desirable: <100 mg/dL Near Optimal: 100-129 mg/dL Borderline High: 130-159 mg/dL High: 160-189 mg/dL Very High: >189 mg/dL 16 Because ethnic data is not always readily [...] 15-29 5 Kidney failure <15 (or dialysis) 17 Because ethnic data is not always readily [...] 15-29 5 Kidney failure <15 (or dialysis) 18 >100 to <200 pg/mL: likely compensated congestive heart failure (CHF) 200 to 400 pg/mL: likely moderate CHF >400 pg/mL: likely moderate to severe CHF 19 Because ethnic data is not always [...] pg/mL: likely moderate to severe CHF 21 Desirable <150 Borderline high 150-199 High 200-499 Very High >500 22 Desirable <200 Borderline high 200-239 High >239 23 Low <40 Desirable: 40-60 High: >60 24 Desirable: <100 mg/dL Near Optimal: 100-129 mg/dL Borderline High: 130-159 mg/dL High: 160-189 mg/dL Very High: >189 mg/dL 25 Because ethnic data is not always readily [...] 15-29 5 Kidney failure <15 (or dialysis) 26 Because ethnic data is not always [...] Very High >189 40 CALL RESULTS TO THIN FILM TECHNICIAN 41 Because ethnic data is not always [...] has been shown to interfere with the [place] method for measuring total bilirubin. Samples from [...] Risk: LDL Greater than 189 MG/DL 56 CHOLESTEROL INTERPRETATION: Desirable: Less than 200 MG/DL Borderline-High Risk: 200-239 MG/DL High-Risk: 240 MG/DL and over 57 HDL INTERPRETATION: Undesirable: High Risk: Less than 40 MG/DL Desirable: Low Risk: Greater than 60 MG/DL 58 LDL INTERPRETATION: Low Risk Optimal Level: LDL Less than 100 MG/DL Near or Above Optimal: LDL 100-129 MG/DL Borderline High Risk: LDL 130-159 MG/DL High Risk: LDL 160-189 MG/DL Very High Risk: LDL Greater than 189 MG/DL 59 Anion gap measurement may be of limited value in the presence of any alkalosis, especially in a combined acid base disorder. . 60 A metabolite of Naproxen, O-desmethylnaproxen, has been shown to interfere with the [place] method for measuring total bilirubin. Samples from patients who have taken Naproxen have shown spurious elevation in total bilirubin levels. 61 Because ethnic data is not always readily [...] 15-29 5 Kidney failure <15 (or dialysis) 62 Anion gap measurement may be of limited value in the presence of any alkalosis, especially in a combined acid base disorder. . 63 Note change in reference range as of 04/02/08. The change was based on recommendations from the [place] [employer]. 64 A metabolite of Naproxen, [...] 0.06 ng/mL NOT SUPPORTIVE OF DIAGNOSIS OF AL 0.06 - 0.50 ng/ml INDETERMINATE: SUGGEST SERIAL STUDIES IF CLINICALLY INDICATED. Greater than 0.5 ng/mL CONSISTENT WITH DIAGNOSIS OF AL . 70 Recommended INR for Patients on [...] change was based on recommendations from the [place] [employer]. 75 Please note change in reference range effective 08 . 76 A metabolite of Naproxen, O-desmethylnaproxen, has been shown to interfere with the [place] method for measuring total bilirubin. Samples from [...] change was based on recommendations from the [place] [employer]. 83 Please note change in reference range effective 08 . 84 A metabolite of Naproxen, O-desmethylnaproxen, has been shown to interfere with the [place] method for measuring total bilirubin. Samples from [...] change was based on recommendations from the [place] [employer]. 91 Please note change in [...] change was based on recommendations from the [place] [employer]. 95 Please note change in [...] MG/DL Procedures Date CPT Code Description Status 10/19/2017 82424 EKG Tracing & Interpretation Completed 10/10/2017 96469 Echocardiogram, Limited Study Completed 10/10/2017 37716 Echocardiogram, Limited Study Completed 09/03/2017 58714 Pace Maker Eval W/Iterative Adjment Dual Lead Completed 09/03/2017 73204 Pace Maker Eval W/Iterative Adjment Dual Lead Completed 07/13/2017 39761 EKG Tracing & Interpretation Completed 05/24/2017 01136 ECHO Transthoracic, Real-Time 2D With Doppler And Color Completed Flow 03/14/2017 47444 Inject Tendon Sheath Or Ligament Aponeurosis Eg Plantar Completed Fascia 03/14/2017 44981 Inject Tendon Sheath Or Ligament Aponeurosis Eg Plantar Completed Fascia 03/05/2017 47036 Pace Maker Eval W/Iterative Adjment Dual Lead Completed 03/05/2017 49703 ECHO Transthoracic, Real-Time 2D With Doppler And Color Completed Flow 03/05/2017 99551 Echocardiogram, Limited Study Completed 01/01/2017 45396 EKG Tracing & Interpretation Completed 12/28/2016 64239 Stress Test Completed 12/28/2016 75335 Myocardial Perfusion Imaging Tomographic (Spect) Completed Multiple Studies 12/07/2016 40837 ECHO Transthoracic, Real-Time 2D With Doppler And Color Completed Flow 11/16/2016 66066 EKG Tracing & Interpretation Completed 11/03/2016 58790 Pace Maker Eval W/Iterative Adjment Dual Lead Completed 06/06/2016 81882 EKG Tracing & Interpretation Completed 05/17/2016 16630 Inject Tendon Sheath Or Ligament Aponeurosis Eg Plantar Completed Fascia 05/17/2016 58164 Inject Tendon Sheath Or Ligament Aponeurosis Eg Plantar Completed Fascia 04/26/2016 70235 Pace Maker Eval W/Iterative Adjment Dual Lead Completed 10/28/2015 85843 Inject/Drain Joint/Bursa Intermediate Completed 10/28/2015 82747 Inject Tendon Sheath Or Ligament Aponeurosis Eg Plantar Completed Fascia 10/26/2015 88340 Interrogation Device Eval In Person W/ Completed Analysis,Single,Dual,Mul 10/26/2015 28914 Interrogation Device Eval In Person W/ Completed Analysis,Single,Dual,Mul 07/26/2015 79266 EKG, Interpretation Only Completed 05/12/2015 26671 Interrogation Device Eval In Person W/ Completed Analysis,Single,Dual,Mul 04/26/2015 76513 Inject Tendon Sheath Or Ligament Aponeurosis Eg Plantar Completed Fascia 04/21/2015 10067 EKG Tracing & Interpretation Completed 10/28/2014 43409 Interrogation Device Eval In Person W/ Completed Analysis,Single,Dual,Mul 10/13/2014 04794 EKG Tracing & Interpretation Completed 10/04/2014 42885 Treadmill Interp/Report Only Completed 10/04/2014 37815 Stress Test Supervsn W/Out I/R Completed 10/04/2014 54502 EKG, Interpretation Only Completed 10/01/2014 77985 ECHO Transthoracic, Real-Time 2D With Doppler And Color Completed Flow 09/10/2014 42102 EKG Tracing & Interpretation Completed 08/17/2014 93935 Pace Maker Eval W/Iterative Adjment Dual Lead Completed 05/19/2014 57318 Interrogation Device Eval In Person W/ Completed Analysis,Single,Dual,Mul 04/27/2014 38186 Pace Maker Eval W/Iterative Adjment Dual Lead Completed 04/23/2014 63184 Inject Tendon Sheath Or Ligament Aponeurosis Eg Plantar Completed Fascia 04/23/2014 64082 Inject Tendon Sheath Or Ligament Aponeurosis Eg Plantar Completed Fascia 04/23/2014 33774 Inject Tendon Sheath Or Ligament Aponeurosis Eg Plantar Completed Fascia 12/12/2013 53758 ECHO Transthoracic, Real-Time 2D With Doppler And Color Completed Flow 12/02/2013 28797 EKG Tracing & Interpretation Completed 11/13/2013 97441 Inject Tendon Sheath Or Ligament Aponeurosis Eg Plantar Completed Fascia 11/13/201338962 Inject Tendon Sheath Or Ligament Aponeurosis Eg Plantar Completed Fascia 11/06/2013 01988 Pace Maker Eval W/Iterative Adjment Dual Lead Completed 06/03/2013 19576 Trigger Finger Release Incision / Tendon Sheath Completed Incision 06/03/2013 12898 Trigger Finger Release Incision / Tendon Sheath Completed Incision 05/21/2013 16859 EKG, Interpretation Only Completed 04/02/2013 46650 Pace Maker Eval W/Iterative Adjment Dual Lead Completed 11/21/2012 52507 Inject Tendon Sheath Or Ligament Aponeurosis Eg Plantar Completed Fascia 11/06/2012 67684 EKG Tracing & Interpretation Completed 10/10/2012 55739 Interrogation Device Eval In Person W/DR Completed Analysis,Single,Dual,Mul 07/15/2012 09048 Removal With Replacement Dual Lead System Pulse Completed Generator 07/01/2012 22529 ECHO Transthoracic, Real-Time 2D With Doppler And Color Completed Flow 06/20/2012 33631 Interrogation Device Eval In Person W/DR Completed Analysis,Single,Dual,Mul 05/09/2012 35003 EKG Tracing & Interpretation Completed 04/04/2012 58140 Pace Maker Eval W/Iterative Adjment Dual Lead Completed 11/22/2011 89370 Treadmill Interp/Report Only Completed 11/22/2011 08683 Stress Test Supervsn W/Out I/R Completed 09/26/2011 64600 Pace Maker Eval W/Iterative Adjment Dual Lead Completed 04/12/2011 30034 EKG Tracing & Interpretation Completed 03/29/2011 26777 Interrogation Device Eval In Person W/ Completed Analysis,Single,Dual,Mul 01/05/2011 83232 Interrogation Device Eval In Person W/DR Completed Analysis,Single,Dual,Mul 10/05/2010 29023 Pace Maker Eval W/Iterative Adjment Dual Lead Completed 04/07/2010 85117 Interrogation Device Eval In Person W/DR Completed Analysis,Single,Dual,Mul 02/16/2010 24745 EKG Tracing & Interpretation Completed 02/15/2010 65196 ECHO Transthorasic Realtime 2D W Doppler & Color Completed Flow Hosp 12/02/2009 04972 Pace Maker Eval W/Iterative Adjment Dual Lead Completed 07/02/2009 57792 EKG Tracing & Interpretation Completed 06/03/2009 17415 Pace Maker Eval W/Iterative Adjment Dual Lead Completed 12/03/2008 59582 Interrogation Device Eval In Person W/DR Completed Analysis,Single,Dual,Mul 07/01/2008 80405 EKG Tracing & Interpretation Completed 07/01/2008 07624 EKG Tracing & Interpretation Completed 06/11/2008 25855 Reprogram Pacemaker (Dual) Completed 06/11/2008 97627 Reprogram Pacemaker (Dual) Completed 06/11/2008 23157 Reprogram Pacemaker (Dual) Completed 12/05/2007 35442 Reprogram Pacemaker (Dual) Completed 11/22/2007 09259 EKG Tracing & Interpretation Completed 11/22/2007 63000 EKG Tracing & Interpretation Completed 09/29/2007 64796 Stress Test Supervsn W/Out I/R Completed 09/29/2007 11497 Stress Test Supervsn W/Out I/R Completed 09/29/2007 44539 Treadmill Interp/Report Only Completed 09/26/2007 29904 Pacemaker Check- [place] Dual Completed 09/26/2007 24255 Pacemaker Check- [place] Dual Completed 08/01/2007 62977 Pacemaker Check- [place] Dual Completed 06/06/2007 15581 Reprogram Pacemaker (Dual) Completed 06/06/2007 81026 Reprogram Pacemaker (Dual) Completed 06/06/2007 82802 Reprogram Pacemaker (Dual) Completed 06/06/2007 49745 Reprogram Pacemaker (Dual) Completed 05/27/2007 95835 EKG Tracing & Interpretation Completed 05/27/2007 38576 EKG Tracing & Interpretation Completed 05/27/2007 10998 Reprogram Pacemaker (Dual) Completed 05/27/2007 60910 Reprogram Pacemaker (Dual) Completed 05/15/2007 06855 EKG Tracing & Interpretation Completed 04/11/2007 41397 Pacemaker Check- [place] Dual Completed 03/20/2007 82280 EKG Tracing & Interpretation Completed 02/14/2007 75311 Pacemaker Check- [place] Dual Completed 12/20/2006 85786 Pacemaker Check- [place] Dual Completed 12/07/2006 05128 Reprogram Pacemaker (Dual) Completed 10/25/2006 84923 Pacemaker Check- [place] Dual Completed 08/30/2006 39954 Pacemaker Check- [place] Dual Completed 08/22/2006 72573 Color Doppler Completed 08/22/2006 50414 Color Doppler Completed 08/22/2006 40806 Pulse Doppler & Continuous Wave Completed 08/22/2006 68654 Echocardiogram Completed 08/22/2006 83873 Echocardiogram Completed 08/02/2006 92689 EKG Tracing & Interpretation Completed 08/02/2006 89242 EKG Tracing & Interpretation Completed 06/08/2006 66018 Pacemaker Check/Dual Blaze/Office Completed 11/10/2005 79637 Reprogram Pacemaker (Dual) Completed 11/10/2005 70786 Reprogram Pacemaker (Dual) Completed 11/09/2005 04207 EKG Tracing & Interpretation Completed 11/09/2005 67416 EKG Tracing & Interpretation Completed 09/11/2005 52880 Pacemaker Check- [place] Dual Completed 06/27/2005 23485 Pacemaker Check/Dual Blaze/Office Completed 04/04/2005 44486 Color Doppler Completed 04/04/2005 84349 Pulse Doppler & Continuous Wave Completed 04/04/2005 92434 Echocardiogram Completed 02/21/2005 72538 Pacemaker Check/Sing Blaze/Office Completed 01/24/2005 38235 Pacemaker Check/Sing Blaze/Office Completed 12/27/2004 82406 Pacemaker Check/Sing Blaze/Office Completed 11/03/2004 37969 Color Doppler Completed 11/03/2004 85543 Pulse Doppler & Continuous Wave Completed 11/03/2004 91713 Echocardiogram Completed 10/26/2004 45807 EKG Tracing & Interpretation Completed 10/18/2004 56693 Pacemaker Check/Sing Blaze/Office Completed 09/08/2004 61339 Pacemaker Check/Sing Blaze/Office Completed 05/03/2004 73071 Pacemaker Check/Sing Blaze/Office Completed 01/26/2004 59581 Pacemaker Check/Sing Blaze/Office Completed 11/03/2003 30851 Pacemaker Check/Sing Blaze/Office Completed 10/20/2003 87828 Holter Monitor Interpretation Completed 10/12/2003 31376 EKG Tracing & Interpretation Completed 07/29/2003 55371 ECHO/Stress Completed 07/29/2003 77357 Stress Test Completed 07/17/2003 58429 Pacemaker Check/Sing Blaze/Office Completed 07/13/2003 21026 EKG Tracing & Interpretation Completed 06/23/2003 88123 Echocardiogram Completed 06/23/2003 87184 Pulse Doppler & Continuous Wave Completed 06/23/2003 04521 Color Doppler Completed 06/22/2003 55750 EKG Tracing & Interpretation Completed 05/14/2003 82670 Pacemaker Check/Sing Blaze/Office Completed 05/01/2003 12370 ECHO/Stress Completed 05/01/2003 14562 Stress Test Completed 03/17/2003 55366 Transesophageal Echocardiogram Completed 03/05/2003 28090 Pacemaker Check/Sing Blaze/Office Completed 12/25/2002 86930 EKG Tracing & Interpretation Completed 12/04/2002 14711 Pacemaker Check/Sing Blaze/Office Completed Encounters Type Date Location Provider CPT E/M Dx Office Visit 08/31/2017 1:00p [facility] ALMITA Oliveira 25119 I10 Z95.2 I42.9 R07.9 N18.9 Office Visit 07/13/2017 1:40p [facility] Ab Chakraborty M.D. 45111 I42.9 I10 R42 Z95.2 E78.5 Z95.0 Office Visit 06/19/2017 10:00a [facility] ALMITA Oliveira 34958 I42.9 Z95.0 I10 R42 Z95.2 Office Visit 04/25/2017 11:30a [facility] ALMITA Oliveira 55493 I42.9 Z95.0 Z95.2 I10 E78.5 Office Visit 02/01/2017 3:30p [facility] ALMITA Oliveira 13926 I42.9 Z95.2 I10 I48.0 Z95.0 R06.02 Office Visit 01/01/2017 2:00p [facility] ALMITA Oliveira 48755 I42.9 Z95.2 I10 I48.0 R06.02 Office Visit 11/16/2016 1:40p [facility] Ab Chakraborty M.D. 85185 I49.5 Z95.0 Z95.2 I10 R06.00 Office Visit 08/02/2016 10:00a [facility] ALMITA Oliveira 61594 Z95.2 I48.0 I10 Office Visit 07/12/2016 11:30a [facility] ALMITA Oliveira 13545 Z95.2 I48.0 I10 R06.02 Office Visit 06/06/2016 10:40a [facility] Ab Chakraborty M.D. 27642 I10 R94.31 I48.0 Z95.2 Office Visit 07/28/2015 2:40p [facility], Lul Castañ[place] [address] R07.2 Hospitalists Z95.2 I10 A41.9 Office Visit 07/27/2015 2:40p [facility], Raul Patel, 07329 R07.2 Hospitalists MAliya Z95.2 I10 Office Visit 07/26/2015 2:39p [facility], 15771 A41.9 Assoc, Hospitalists MJohanaDJohana R07.2 Z95.2 I10 Office Visit 04/21/2015 10:00a [facility] Ab Chakraborty, 58252 427.81 M.DJohana 401.9 424.1 424.0 Office Visit 10/13/2014 11:30a [facility] ALMITA Oliveira 90940 272.4 401.9 424.1 424.0 V45.01 427.31 Office Visit 10/04/2014 7:56a [facility],pc Wil Márquez, 69123 786.50 Hospitalists MAliya 272.4 401.9 Office Visit 10/03/2014 7:56a [facility], 01114 786.50 Assoc,pc Hospitalists N.P. 272.4 401.9 Office Visit 09/10/2014 11:00a [facility] Ab Chakraborty, 68725 427.81 M.D. 424.1 424.0 401.9 427.31 Office Visit 04/23/2014 10:45a [facility] Radha Navarro 08583 727.03 Of C.Dot Huggins Office Visit 12/04/2013 9:30a [facility] Radha Navarro 55492 354.0 Of C.M.Dave Huggins 727.03 Office Visit 12/02/2013 2:00p [facility] Ab Chakraborty M.D. 79424 354.0 427.81 V45.01 424.0 424.1 Office Visit 11/13/2013 10:15a [facility] Radha Navarro 09287 354.0 C.Dot Huggins 727.03 Office Visit 04/24/2013 8:45a [facility] Radha Navarro 30506 727.03 Of C.Dot Huggins Office Visit 11/21/2012 10:30a [facility] Radha Navarro 94323 727.03 Of C.Dot Huggins Office Visit 11/06/2012 10:40a [facility] Ab Chakraborty 87886 424.0 M.D. 427.81 V45.01 401.1 Office Visit 07/22/2012 2:45p [facility] Richard Pedraza 59204 427.81 [employer] [facility] M.[place]. Office Visit 07/03/2012 1:30p [facility] Richard Pedraza 49591 427.89 [facility] M.D. Office Visit 05/23/2012 11:00a [facility] Obdulia Chiu 61455 401.1 N.P. Office Visit 05/09/2012 1:40p [facility] Ab Chakraborty 59450 401.1 M.DJohana 427.81 425.9 Office Visit 04/12/2011 9:20a [facility] Ab Chakraborty M.D. 59851 425.9 427.81 V43.3 427.0 Office Visit 02/16/2010 1:20p [facility] Ab Chakraborty M.D. 77342 425.9 V43.3 V45.01 427.81 427.0 Office Visit 07/02/2009 9:20a [facility] Ab Chakraborty 90490 V45.01 M.D. 427.81 427.0 401.1 Office Visit 09/01/2008 2:40p [facility] Ab Chakraborty M.D. 29639 401.1 V45.01 427.81 427.0 Office Visit 07/08/2008 11:00a [facility] Nurse Visit 69129 401.0 Office Visit 07/01/2008 8:10a [facility] Ab Chakraborty 65928 427.81 M.D. 427.0 401.0 Office Visit 11/22/2007 2:00p [facility] Ab Chakraborty 16126 786.50 M.D. 427.81 401.1 427.0 Office Visit 05/29/2007 3:40p [facility] Ab Chakraborty 86297 427.81 M.D. 401.1 V43.3 427.0 Office Visit 05/27/2007 11:00a [facility] Ab Chakraborty 91503 427.81 M.D. V43.3 401.1 Office Visit 05/15/2007 10:20a [facility] Ab Chakraborty 08708 427.81 M.D. V43.3 401.1 278.01 V45.01 Office Visit 03/20/2007 9:00a [facility] Ab Chakraborty 31397 427.81 M.D. 427.0 V43.3 401.1 278.01 Office Visit 08/02/2006 1:40p [facility] Ab Chakraborty M.D. 66637 401.1 V43.3 Office Visit 11/09/2005 9:40a [facility] Ab Chakraborty M.D. 41391 401.0 427.81 V43.3 278.01 Office Visit 10/26/2004 8:40a [facility] Ab Chakraborty M.D. 60615 427.0 424.1 424.0 401.0 Office Visit 10/12/2003 9:00a [facility] Ab Chakraborty M.D. 53619 785.1 V43.3 Office Visit 07/13/2003 10:40a [facility] Ab Chakraborty M.D. 95514 396.3 424.1 427.81 Office Visit 06/22/2003 10:00a [facility] Ab Chakraborty M.D. 83558 427.1 424.0 427.81 Office Visit 06/10/2003 1:20p [facility] Ab Chakraborty 21396 427.81 MAliya 429.3 424.0 Office Visit 03/23/2003 1:20p [facility] Ab Chakraborty M.D. 25995 429.3 V45.01 Office Visit 03/12/2003 11:00a [facility] Ab Chakraborty M.D. 90285 429.3 436 Office Visit 12/25/2002 10:00a [facility] Ab Chakraborty M.D. 85750 429.3 Plan of Care Future Appointment(s):11/05/2017 10:00 am - [facility] - Ab Chakraborty M.D.I48.0 Paroxysmal atrial fibrillationFollow up:pacer check this mdfcaQ27.2 Presence of prosthetic heart stasaQ96.9 Chronic kidney disease, [id number] Dizziness and giddinessFollow up:contact Dr. Pace regarding leg weakness/tremorsRecommendations:stop crestor /I42.9 Cardiomyopathy, unspecifiedNew Labs:B-Type Natriuretic Peptide BNPCBC Auto DiffFerritinIron & Iron Binding CapacityErythrocyte Sed RateCRP High SensitivityLipid Panel - JFMProtein ElectrophoresisRecommendations:stop diltiazem ov next week with Adri or JFM ov JFM 2 m
[2017-10-21 10:28] LABS: Hematocrit 36 % (35-47); Hemoglobin 11.8 g/dl (12.0-16.0); Mean Corpuscular HGB Conc 33 g/dl (31-36); Mean Corpuscular Hemoglobin 32 pg (27-31); Mean Corpuscular Volume 97 fL (80-97); Mean Platelet Volume 9 um3 (7.4-10.4); Platelet Count 238 10^3/ul (150-450); Red Blood Count 3.75 10^6/ul (4.0-5.4); Red Cell Distribution Width 18 % (10.5-15); White Blood Count 18.9 10^3/ul (3.5-10.8)
[2017-10-21 10:33] LABS: INR 3.63 (0.77-1.02)
[2017-10-21] MEDS ORDERED: levETIRAcetam TAB* 500 MG PO ONE (10:39)
[2017-10-21] MEDS ORDERED: Labetalol IV* 5 MG/ML 20 ML VIAL IV PUSH ONE (10:39)
--- NOTE | 2017-10-21 10:50 | RAD ---
HISTORY: Unresponsive COMPARISONS: Head CT dated November 22, 2012 TECHNIQUE: Multiple contiguous axial CT scans were obtained of the head without intravenous contrast. FINDINGS: HEMORRHAGE/INFARCT: There has been interval development of a large parenchymal hematoma that is centered in the right basal ganglia with extension into the frontal lobe. There is intraventricular extension of blood. This measures approximate 7 x 6.5 cm transversely. Elsewhere, there is no hemorrhage or acute infarct. MASSES/SHIFT: There is approximately 1.9 cm of subfalcine shift to the left. There is effacement of the basal cisterns. EXTRA-AXIAL SPACES: There are no extra-axial fluid collections. SULCI AND VENTRICLES: The LAD is noted within the lateral ventricles, third ventricle, and fourth ventricle. There is ventriculomegaly of the left lateral ventricle suggestive of a trapped ventricle. There is mass effect upon the third ventricle. CEREBRUM: As noted above, there is a large parenchymal hematoma centered within the basal ganglia on the right and extension into the frontal lobe. There is associated vasogenic edema. BRAINSTEM: There is extension of hemorrhage into the right cerebral peduncle. CEREBELLUM: There are no focal parenchymal abnormalities. VESSELS: The vessels are grossly normal. PARANASAL SINUSES: The paranasal sinuses are clear. ORBITS: The orbits are unremarkable. BONES AND SOFT TISSUE: No bone or soft tissue abnormalities are noted. OTHER: None IMPRESSION: 1. LARGE INTRAPARENCHYMAL HEMATOMA, WITH ASSOCIATED VASOGENIC EDEMA, CENTERED WITHIN THE RIGHT BASAL GANGLIA WITH EXTENSION TO THE RIGHT FRONTAL LOBE AND RIGHT CEREBRAL PEDUNCLE. 2. THERE IS APPROXIMATE 1.9 CM OF SUBFALCINE SHIFT TO THE LEFT. THERE IS EFFACEMENT OF THE BASAL CISTERNS. 3. THERE IS INTRAVENTRICULAR EXTENSION OF BLOOD, WITH MASS EFFECT UPON THE THIRD VENTRICLE AND ENLARGEMENT OF THE LEFT LATERAL VENTRICLE, SUGGESTIVE OF A TRAPPED VENTRICLE. PRELIMINARY FINDINGS WERE DISCUSSED WITH DR. PEREZ IN THE EMERGENCY DEPARTMENT AT APPROXIMATELY 1043 A.M. ON OCTOBER 21, 2017.
[2017-10-21] MEDS ORDERED: levETIRAcetam IV* 1,000 MG in NS 0.9% 100 ML* 100 ML IVPB ONE (10:53)
[2017-10-21] MEDS ORDERED: Phytonadione INJ (Adult)* 10 MG/ML 1 ML AMP SUBCUT ONE (11:00)
[2017-10-21 11:06] LABS: Urine Appearance Cloudy; Urine Blood 2+ (Negative); Urine Color Yellow; Urine Ketones Negative (Negative); Urine Protein 1+(30 mg/dL) (Negative); Urine Urobilinogen Negative (Negative)
--- NOTE | 2017-10-21 11:07 | RAD ---
HISTORY: Unresponsive COMPARISONS: November 19, 2016 VIEWS: 1: frontal portable view of the chest at 10:48 AM FINDINGS: LINES AND TUBES: An endotracheal tube is noted with the tip overlying the trachea between the clavicles and the ruben. A gastric tube is noted, with the tip in the left upper quadrant in a prepyloric position.. Prosthetic heart valves are noted. A right-sided pacemaker is noted. CARDIOMEDIASTINAL SILHOUETTE: The cardiomediastinal silhouette is normal for portable technique. PLEURA: The costophrenic angles are sharp. No pleural abnormalities are noted. LUNG PARENCHYMA: The lungs are clear. ABDOMEN: The upper abdomen is clear. There is no subphrenic gas. BONES AND SOFT TISSUES: The patient is status post median sternotomy. IMPRESSION: LINES AND TUBES ABOVE. NO ACTIVE CARDIOPULMONARY DISEASE.
[2017-10-21 11:34] LABS: Monocytes % 3 % (0-7)
[2017-10-21] MEDS ORDERED: Morphine INJ* 10 MG/ML 1 ML CARPUJECT IV ONE (12:35)
[2017-10-21 14:54] VITALS: BP 81/48
--- NOTE | 2017-10-21 16:32 | ED ---
Hussain Ceballos Gabriel, scribed for Henrry Pierce MD on 10/21/17 at 1044 . Neurological HPI - HPI Summary HPI Summary: This patient is a 77 year old F BIBA to [facility] on arrival the patient is unresponsive. Ems reports the patient has a pacer and 2 valve replacements. She was found unresponsive at 0914 but breathing by her daughter. The daughter is unaware how long she was unresponsive before being found. She was in rapid afib with a BP of 218/140, pupils pin point and she is unresponsive to painful stimuli. Pt is on blood thinners. She also saw her outside plant field engineer on 10-19-17 and the results were not completely benign. She was given .8mg of narcan TREATING INSPECTOR without any effect. There was no cyanosis and no CPR performed because she had pulse. 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 Verified 09/03/17 13:32 Breathing/I tching MS Sulfa Drugs [Sulfa Drugs] Allergy Intermediate GI Upset Verified 09/03/17 13: 32 MS Triamcinolone Allergy Unknown Unknown Verified 09/03/17 13:32 [From Nasacort] Reaction Details MS Nitrofurantoin AdvReac Intermediate GI Upset Verified 09/03/17 13:32 [Nitrofurantoin] SURGICAL TAPE Allergy Mild Rash Uncoded 05/26/17 08:22 Home Medications: Home Medications Ammonium Lactate [Ammonium Lactate] 12 % TOPICAL DAILY PRN 10/21/17 [History Confirmed 10/21/17] Losartan TAB* [Cozaar TAB*] 25 mg PO DAILY 10/21/17 [History Confirmed 10/21/17] Metoprolol Succinate XL TAB* [Toprol XL TAB*] 50 mg PO DAILY 10/21/17 [History Confirmed 10/21/17] Rosuvastatin (NF) [Crestor (NF)] 5 mg PO BEDTIME 10/21/17 [History Confirmed 06/30] Spironolactone TAB* [Aldactone TAB*] 25 mg PO DAILY 10/21/17 [History Confirmed 10/21/17] Torsemide TAB* [Demadex*] 10 mg PO .FIVETIMESWEEKLY 10/21/17 [History Confirmed 10/21/17] Warfarin TAB(*) [Coumadin TAB(*)] 5 mg PO MOTUWEFRSA 10/21/17 [History Confirmed 10/21/17] dilTIAZem HCl [Cartia Xt] 300 mg PO DAILY 10/21/17 [History Confirmed 10/21/17] PMH/Surg Hx/FS Hx/Imm Hx Endocrine/Hematology History: Reports: Hx Anticoagulant Therapy - daily coumadin , Hx Diabetes - controlled by diet Denies: Hx Thyroid Disease Cardiovascular History: Reports: Hx Angina, Hx Cardiomegaly, Hx Hypercholesterolemia - HLD, Hx Hypertension, Hx Pacemaker/ICD, Hx Peripheral Vascular Disease, Hx Rheumatic Fever - YOUNG CHILD, 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, Other Cardiovascular Problems/Disorders Denies: Hx Coronary Artery Disease, Hx Myocardial Infarction Respiratory History: Reports: Hx Asthma - on meds, Hx Seasonal Allergies, Other Respiratory Problems/Disorders - REACTIVE AIRWAY Denies: Hx Chronic Obstructive Pulmonary Disease (COPD) GI History: Reports: Hx Gastroesophageal Reflux Disease, Hx Ulcer - HEALED WITH ORAL MEDS, NO PROBLEMS SINCE History: Reports: Hx Kidney Stones - , NONE SINCE, PASSED ON OWN Musculoskeletal History: Reports: Hx Arthritis - KNEES, HANDS,, Hx Bursitis, Hx Tendonitis - Hx OF, ELBOWS Sensory History: Reports: Hx Cataracts - NO SURGERY, Hx Contacts or Glasses, Hx Hearing Problem Opthamlomology History: Reports: Hx Cataracts - NO SURGERY, Hx Contacts or Glasses Neurological History: Reports: Hx Headaches Comment Only: Other Neuro Impairments/Disorders - SUDDENLY 2012 Psychiatric History: Reports: Hx Anxiety, Hx Depression - ON DAILY MEDS - Cancer History Cancer Type, Location and Year: Breast cancer 2014 - Surgical History Surgery Procedure, Year, and Place: L4-L5 DISK REMOVED Hx Anesthesia Reactions: No Infectious Disease History: No Infectious Disease History: Denies: Hx Clostridium Difficile, Hx Hepatitis, Hx Human Immunodeficiency Virus (HIV), Hx of Known/Suspected MRSA, Hx Shingles, Hx Tuberculosis, Hx Known/ Suspected VRE, Hx Known/Suspected VRSA, History Other Infectious Disease, Traveled Outside the [place] in Last 30 Days - Family History Known Family History: Positive: Cardiac Disease, Hypertension, Diabetes - nephew - fatal dm at 65 y/o - Social History Alcohol Use: None Substance Use Type: Reports: None Smoking Status (MU): Never Smoked Tobacco Review of Systems - ROS Summary Review of Systems Summary: LEVEL 5 CAVEAT: ROS limited due to patient being completely unresponsive Neurological: Other - UNRESPONSIVE All Other Systems Reviewed And Are Negative: No Physical Exam - Summary Physical Exam Summary: VITAL SIGNS: Reviewed. GENERAL: Patient is a well-elderly female who is unresponsive in the stretcher. HEAD AND FACE: No signs of trauma. No ecchymosis, hematomas or skull depressions. No sinus tenderness. EYES: pupils are non-reactive MOUTH: Oropharynx within normal limits. NECK: Supple, trachea is midline, CHEST: Symmetric, LUNGS: breath sounds only with bagging CVS: irregular rate and rhythm, ABDOMEN: Soft, non-tender. No signs of distention. No rebound no guarding, and no masses palpated. Bowel sounds are decreased EXTREMITIES: FROM in all major joints, no edema, no cyanosis or clubbing. NEURO: Alert and oriented x 3. No acute neurological deficits. Speech is normal and follows commands. SKIN: Dry and warm Patient had a BM in the ED that had no blood or melena Triage Information Reviewed: Yes Vital Signs On Initial Exam: Initial Vitals Temp Pulse Resp BP Pulse Ox 97.3 F 94 22 132/81 99 10/21/17 10:10 10/21/17 10:10 10/21/17 10:10 10/21/17 10:10 10/21/17 10:10 Vital Signs Reviewed: Yes Diagnostics - Vital Signs Vital Signs Temp Pulse Resp BP Pulse Ox 10/21/17 10:10 97.3 F 94 22 132/81 99 - Laboratory Lab Results: Lab Results 10/21/17 10/21/17 10/21/17 Range/Units 09:20 10:20 10:20 WBC 18.9 H (3.5-10.8) 10^3/ul RBC 3.75 L (4.0-5.4) 10^6/ul Hgb 11.8 L (12.0-16.0) g/dl Hct 36 (35-47) % MCV 97 (80-97) fL MCH 32 H (27-31) pg MCHC 33 (31-36) g/dl RDW 18 H (10.5-15) % Plt Count 238 (150-450) 10^3/ul MPV 9 (7.4-10.4) um3 Neut % (Auto) Pending Lymph % (Auto) Pending Morrill % (Auto) Pending Eos % (Auto) Pending Baso % (Auto) Pending Absolute Neuts (auto) Pending Absolute Lymphs (auto) Pending Absolute Monos (auto) Pending Absolute Eos (auto) Pending Absolute Basos (auto) Pending Absolute Nucleated RBC Pending Nucleated RBC % Pending INR (Anticoag Therapy) 3.63 H (0.77-1.02) Patient Temperature Not Reportable ABG pH 7.25 L (7.35-7.45) ABG pH (Temp Correct) Not Reportable ABG pCO2 54 H (35-45) mmHg ABG pCO2 (Temp Corrct Not Reportable ABG pO2 235 H (80-100) mmHg ABG pO2 (Temp Correct Not Reportable ABG HCO3 21.8 (19-31) mmol/L ABG O2 Saturation 99.5 H (95-98) % ABG Base Excess -4.0 L (-2.0-2.0) Respiration Rate 14 Ventilator Type 500 Vent Mode cmv FiO2 100 Inspiratory Time Not Reportable PEEP 5 Pressure Support Not Reportable Pressure Control Not Reportable EPAP Not Reportable IPAP Not Reportable BiPAP Not Reportable Result Diagrams: 10/21/17 10:20 10/21/17 10:20 Lab Statement: Any lab studies that have been ordered have been reviewed, and results considered in the medical decision making process. - Radiology CXR Radiology Interpretation Completed By: Radiologist - LINES AND TUBES ABOVE. NO ACTIVE CARDIOPULMONARY DISEASE. ED physician has reviewed this radiology report. - CT CT Brain CT Interpretation Completed By: Radiologist - 1. LARGE INTRAPARENCHYMAL HEMATOMA, WITH ASSOCIATED VASOGENIC EDEMA, CENTERED WITHIN THE RIGHT BASAL GANGLIA WITH EXTENSION TO THE RIGHT FRONTAL LOBE AND RIGHT CEREBRAL PEDUNCLE. 2. THERE IS APPROXIMATE 1.9 CM OF SUBFALCINE SHIFT TO THE LEFT. THERE IS EFFACEMENT OF THE BASAL CISTERNS. 3. THERE IS INTRAVENTRICULAR EXTENSION OF BLOOD, WITH MASS EFFECT UPON THE THIRD VENTRICLE AND ENLARGEMENT OF THE LEFT LATERAL VENTRICLE, SUGGESTIVE OF A TRAPPED VENTRICLE. ED physician has reviewed this radiology report - EKG 1018 Cardiac Rate: Other Rate EKG Rhythm: Atrial Fibrillation - at 84 BPM EKG Interpretation: ST depressions in V4,5,6 Course/Dx - Course Assessment/Plan: An EKG reveals Afib ST depressions in V4,5,6. CXR reveals, per radiologist, LINES AND TUBES ABOVE. NO ACTIVE CARDIOPULMONARY DISEASE. Originally the patient came in unresponsive and was intubated. She has good pulses but poor capillary refill, the eyes were nonreactive. A head ct showed 1. LARGE INTRAPARENCHYMAL HEMATOMA, WITH ASSOCIATED VASOGENIC EDEMA, CENTERED WITHIN THE. RIGHT BASAL GANGLIA WITH EXTENSION TO THE RIGHT FRONTAL LOBE AND RIGHT CEREBRAL PEDUNCLE. 2. THERE IS APPROXIMATE 1.9 CM OF SUBFALCINE SHIFT TO THE LEFT. THERE IS EFFACEMENT OF. THE BASAL CISTERNS. 3. THERE IS INTRAVENTRICULAR EXTENSION OF BLOOD, WITH MASS EFFECT UPON THE THIRD. VENTRICLE AND ENLARGEMENT OF THE LEFT LATERAL VENTRICLE, SUGGESTIVE OF A TRAPPED. VENTRICLE. . I discussed the case with Dr. Tran and he reports he cannot do anything for the patient. I started with IV fluids, fresh plasma, and vitamin K for the brain bleed. I also ordered Kepra to prevent seizures. I discussed the case with Dr. Little, he met with the family and they decided to withdrawal all medical care from the patent. They are waiting for a family member to come in order to disconnect the ventilator and all medical care. Family arrived and the agreed to disconcert medical care. Dr. Hernandez disconnected all medical support and he signed the certificate - Diagnoses Provider Diagnoses: Hemorrhagic cerebrovascular accident (CVA) - Critical Care Time Critical Care Time: 75-104 min Discharge - Discharge Plan Condition: Disposition: Referrals: Casper Pace MD [Primary Care Provider] - Consult Consult: 1057 We discussed patient care with Dr. Hernandez, they spoke with the family and decided they are going to withdrawal care from the patient. 1059 We discussed patient care with Dr. Tran and he states there is no appropriate medical intervention he can currently take. 1119 Dr. Hernandez spoke with the maintenance of way clerk and he has decided to canceled blood work. The documentation as recorded by the Hussain schwartz Gabriel accurately reflects the service I personally performed and the decisions made by me, Henrry Pierce MD.
--- NOTE | 2017-10-23 09:15 | PN ---
Progress Note - Progress Note Date of Service: 10/21/17 Note: patient therefore no further action required on urine culture results.
== END 2017-10-21 12:24 | disposition expired ==
LOC: ED 10:07
DX: I62.9 Nontraumatic intracranial hemorrhage, unspecified (principal); Z79.01 Long term (current) use of anticoagulants; Z86.79 Personal history of other diseases of the circulatory system; Z95.0 Presence of cardiac pacemaker
CPT/HCPCS: 36415; 36600; 70450; 71045; 80053; 80307; 80320; 80329; 81003; 81015; 82140; 82550; 82803; 83605; 83735; 84443; 84484; 85025; 85610; 87077; 87086; 87186; 93005; 94002; 96365; 96375; 99285; G0480; J2270; J3430